=== PATIENT | male | born 1950 | race Caucasian/White ===

== ENCOUNTER 2025-04-05 08:35 | Outpatient (AMB) | payer BC, SELFPAY ==
--- OUTSIDE RECORDS SUMMARY | 2025-04-05 08:50 | XMS_ITS | Clinical Summary ---
Author Organization [facility] [place] Address [address] [facility] [place] [address] Phone Care Team Providers Care Engineering Equipment Operator Name Role Phone Ruslan Tarango MD Primary Care Provider [phone] Allergies Active Allergy Reactions Criticality Noted Date Comments Atorvastatin Calcium 07/18/2021 Medications ubidecarenone (CO Q-10 ORAL) Take 100 mg by mouth 1 (one) time each day. Active NETTLE LEAF, URTICA DIOICA, ORAL Take 1 Capsule by mouth daily. Active aspirin 81 mg EC tablet Take 1 tablet by mouth daily. Active esomeprazole (NexIUM) [address] capsule Take 1 Capsule by mouth every morning (before breakfast). Active famotidine (PEPCID) 20 mg tablet Take 1 Tablet by mouth 2 times daily. Active finasteride (PROSCAR) 5 mg tablet Take 5 mg by mouth daily. Active hydrALAZINE (APRESOLINE) 25 mg tablet Take 1 tablet by mouth 2 Times Daily. Active rosuvastatin (CRESTOR) 10 mg tablet Take 1 tablet by mouth daily. Active triamterene-hyd roCHLOROthiazid e (MAXZIDE-25) 37.5-25 mg per tablet Take 1 tablet by mouth daily. Active irbesartan (AVAPRO) 300 mg tablet TAKE 1 TABLET DAILY 90 tablet 1 11/06/2024 Active amLODIPine (NORVASC) 5 mg tablet TAKE 1 TABLET DAILY 90 tablet 1 11/06/2024 Active metoprolol succinate (TOPROL-XL) 50 mg 24 hr tablet TAKE 1 TABLET DAILY 90 tablet 1 11/06/2024 Active fenofibrate (LOFIBRA) 54 mg tablet TAKE 1 TABLET DAILY 90 tablet 1 11/06/2024 Active omega-3 acid ethyl esters (LOVAZA) 1 gram capsule Take 1,200 mg by mouth 2 (two) times a day. Active tadalafiL (CIALIS) 5 mg tablet Take 1 tablet (5 mg total) by mouth every other day. Active Active Problems Problem Noted Date Diagnosed Date Aortic valve sclerosis 01/12/2023 Overview (11/03/2024): Last Assessment & Plan: Very mild thickening of the aortic valve using a very soft 1/6 left ventricular outflow tract murmur patient's been made aware Paroxysmal ventricular tachy cardia (CMS/HCC V24, CMS/HCC V28) 05/29/2022 Overview (11/03/2024): Intraventricular complexes and nonsustained ventricular tachycardia. Last Assessment & Plan: No further episodes of V. tach identified Chronic ischemic heart disease 02/25/2022 Overview (11/03/2024): Known coronary disease with EVANGELISTA to the LAD. Last Assessment & Plan: Patient presents today endorsing symptoms similar to those prior to his coronary intervention. 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 Most recent stress echocardiogram in January 2022 could not exclude hypokinesis of the apical septal wall. Patient also endorses chest tightness, as well as nausea and increased fatigue. In light of the symptoms, I have ordered a cardiac PET stress test to further evaluate for ischemia. Patient instructed to call 911 or go to the hospital should he begin to experience chest pain or pressure lasting greater than 10 minutes that is not resolved with rest. He will continue on guideline directed medical therapy of metoprolol, amlodipine, Crestor, and aspirin. Class 1 obesity 02/25/2022 Brain TIA 02/25/2022 Overview (11/03/2024): D/C'd from [facility] on 02/07/22 Last Assessment & Plan: Patient never had a TIA documented. He does have these vague symptoms that seem to be more hyperperfused of than due to embolic, or thromboembolic disease. Patient does have frequent triplets and nonsustained VT. He does have scar tissue on nuclear study EF is preserved on exam beta-chaim lasting to be seen by her EP service to see if any further intervention is needed other ventricular ectopy since the ectopy may be causing some of the lightheaded symptoms and is complaining about no direct correlation of that has not been documented Lightheadedness 02/25/2022 Overview (11/03/2024): D/C'd from [facility] on 02/07/22 Chest tightness 02/25/2022 Overview (11/03/2024): D/C'd from [facility] on 02/07/22 Acute renal failure (ARF) ([facility] V24) 02/26/20 Overview (11/03/2024): D/C'd from [facility] on 02/07/22 CAD in [place] artery 07/18/2021 Overview (11/03/2024): Last Assessment & Plan: No evidence of ischemic coronary artery disease. Hyperlipidemia 07/18/2021 Overview (11/03/2024): Last Assessment & Plan: Lipids under good medical management Hypertension 07/18/2021 Overview (11/03/2024): Last Assessment & Plan: Blood pressure much better controlled during today's off exam with a reading of 136/76 . I have made no changes to his antihypertensive medications. He will continue on his current doses. Patient will continue with diet and lifestyle modification to help further assist in lowering blood pressure. He was encouraged to follow a low-salt low-fat diet, make purposeful strides towards weight loss and engage in routine aerobic exercise 30 minutes a day 4-5 times a week as tolerated. TAI (obstructive sleep apnea) 07/18/2021 Overview (11/03/2024): Last Assessment & Plan: History of sleep apnea remains on CPAP Resolved Problems Problem Noted Date Diagnosed Date Resolved Date Benign hypertensive heart disease 07/16/2022 01/26/2025 Overview (11/03/2024): Essential hypertension Last Assessment & Plan: Elevated blood pressure reading in the office today likely software support representative of whitecoat effect to some degree. I reviewed his home logs which generally show reasonable control with some mildly elevated systolic readings noted. We talked about possibly having him come off the diuretic given he has some concern about the effect on the kidneys and increasing amlodipine and hydralazine. I would not increase the metoprolol given his resting pulses in a good range. We talked about a low- sodium diet. He will need to avoid excessive alcohol or NSAIDs. Near syncope 02/25/2022 01/26/2025 Overview (11/03/2024): D/C'd from [facility] on 02/07/22 Encounters Date Type Department Care Team Description 01/26/2025 2:40 PM EST Office Visit [facility] [address] [facility] [address] [place] [address] Valentina Brito NP CAD in [place] artery (Primary Dx); Primary hypertension; Chronic ischemic heart disease; Paroxysmal ventricular tachycardia (CMS/HCC V24, CMS/HCC V28); Mixed hyperlipidemia; Heart murmur from Last 3 Months Surgical History Surgery Date Site/Laterality Comments CORONARY ARTERY BYPASS GRAFT PROCEDURE: HISTORICAL CABG CARDIAC CATHETERIZATION PROCEDURE: HISTORICAL CARDIAC CATH KNEE ARTHROSCOPY W/ MENISCAL REPAIR PROCEDURE: HI ARTHROSCOPY KNEE W/MENISCUS RPR MEDIAL/LATERAL Medical History Medical History Date Comments Chronic ischemic heart disease D X:Chronic ischemic heart disease Hyperlipidemia DX:Hyperlipidemi a Essential hypertension DX:Essent ial hypertension Benign prostatic hyperplasia without lower urinary tract symptoms DX:Benign prostatic hyperpla cedric without lower urinary tract symptoms; COMMENT: w/o obstruction Chronic GERD DX:Chronic GERD IBS (irritable bowel syndrome) D X:IBS (irritable bowel syndrome) Class 1 obesity DX:Class 1 obesi ty TAI (obstructive sleep apnea) DX :TAI (obstructive sleep apnea) Brain TIA DX:Brain TIA; CO MMENT: D/C'd from [facility] on 02/07/22 Lightheadedness DX:Lightheadedne ss; COMMENT: D/C'd from [facility] on 02/07/22 Near syncope DX:Near syncope; COMMENT: D/C'd from [facility] on 02/07/22 Vertigo DX:Vertigo; COMM ENT: D/C'd from [facility] on 02/07/22 Acute renal failure (ARF) (CMS/HCC V24) DX:Acute renal failure (ARF) (HCC); COMMENT: D/C'd from [facility] on 02/07/22 Anxiety DX:Anxiety; COMM ENT: D/C'd from [facility] on 02/07/22 Chronic renal disease DX:Chronic renal disease Chronic fatigue syndrome DX:Job 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 fatigue syndrome Backache DX:Backache Idiopathic osteoporosis DX:Idiop athic osteoporosis Low back pain DX:Low back pain Anemia DX:Anemia Family History Medical History Relation Name Comments No Known Problems Brother CABG Father Colon cancer Mother Hypertension Mother Relation Name Status Comments Brother Alive Father Mother Alive Social History Tobacco Use Types Packs/Day Years Used Date Smoking Tobacco: Never Smokeless Tobacco: Never Alcohol Use Standard Drinks/Week Comments Yes 0 (1 standard drink = 0.6 oz pur e alcohol) occassionally Sex and Gender Information Value Date Recorded Sex Assigned at Not on file Legal Sex Male 10:04 AM EST Gender Identity Not on file Sexual Orientation Not on file Obstetrics History Last Filed Vital Signs Vital Sign Reading Time Taken Comments Blood Pressure 140/82 01/26/2025 2:33 PM EST Pulse 60 01/26/2025 2:33 PM EST Temperature - - Respiratory Rate - - Oxygen Saturation 100% 01/26/2025 2:33 PM EST Inhaled Oxygen Concentration - - Weight 104 kg (228 lb 3.2 oz) 01/26/2025 2:33 PM EST Height 172.7 cm (5' 8 ) 01/26/2025 2:33 PM EST Body Mass Index 34.7 01/26/2025 2:33 PM EST Plan of Treatment Upcoming Encounters Date Type Department Care Team (Late st Contact Info) Description 04/09/2025 11:30 AM EDT Ancillary Procedure [facility] - [address] [facility] [address] [place] [address] 08/10/2025 1:30 PM EDT Office Visit [facility] [address] [facility] [address] [place] [address] Jeffrey Carreno MD [address] [place] [address] [address]IVE [address] [place] [address] Health Maintenance Due Date Last Done Comments DTaP,Tdap,and Td Vaccines (1 - Tdap) 1969 COVID-19 Vaccine (3 - Pfizer risk series) 04/07/2021 03/10/2021, 02/17/2021 Colorectal Cancer Screening: Colonoscopy 11/07/2022 Depression Screening 11/07/2022 Falls Risk Assessment 11/07/2022 Hepatitis C Screening 11/07/2022 Social Influencers of Health Screening 11/07/2022 Hypertension/CHF/CAD Annual BMP Blood Test 12/03/2023 12/03/2022, 09/26/2020 Cholesterol Screening (Lipid Panel) 03/26/2030 03/26/2025, 04/03/2006 Pneumococcal Vaccine: 50+ Years Completed 09/04/2021, 11/09/2018 Zoster Vaccines Completed 11/12/2021, 09/12/2021 Influenza Vaccine Completed 09/20/2024, , 09/25/2022, Additional history exists RSV Immunization Adult Patients Completed 09/28/2024 HIB Vaccines Aged Out No longer eligi ble based on patient's age to complete this topic HPV Vaccines Aged Out No longer eligi ble based on patient's age to complete this topic Hepatitis A Vaccines Aged Out No long er eligible based on patient's age to complete this topic Hepatitis B Vaccines Aged Out No long er eligible based on patient's age to complete this topic IPV Vaccines Aged Out No longer eligi ble based on patient's age to complete this topic MMR Vaccines Aged Out No longer eligi ble based on patient's age to complete this topic Meningococcal ACWY Vaccine Aged Out N o longer eligible based on patient's age to complete this topic Meningococcal B Vaccine Aged Out No l onger eligible based on patient's age to complete this topic RSV Immunization Patients Under 20 months Aged Out No longer eligible based on patient's age to complete this topic Varicella Vaccines Aged Out No longer eligible based on patient's age to complete this topic Procedures Procedure Name Priority Date/Time Associated Diagnosis Comments LIPID PANEL Routine 03/26/2025 9:36 AM EDT CAD in [place] artery Mixed hyperlipidemia ECG 12-LEAD Routine 01/26/2025 4:20 PM EST CAD in [place] artery ANNUAL BMP BLOOD TEST Routine 12/03/2022 from Last 3 Months or Most Recently Relevant to Health Maintenance Results * Lipid panel (03/26/2025 9:36 AM EDT) Cholesterol Total 135 100 - 199 mg/dL [facility] 1 Triglycerides 125 0 - 149 mg/dL [facility] 1 HDL Cholesterol 45 >39 mg/dL [facility] 1 VLDL Cholesterol Calculated 22 5 - 40 mg/dL [facility] 1 LDL Chol Calc ([facility]) 68 0 - 99 mg/dL [facility] 1 Blood Venous blood specimen / Unknown 03/26/2025 9:36 AM EDT 03/26/2025 Narrative [facility] - 03/27/2025 2:06 AM EDT Performed at: ??01 - [facility] [address] ??[id number] Carton Marker Machine: Bernarda Salazar MD, Phone: ??[phone] us Valentina Brito PLANT CONTROLS SPECIALIST LAB BLOOD ORDERABLES Final R esult [facility] * ECG 12 lead (01/26/2025 4:20 PM EST) Ventricular Rate ECG 60 BPM GEMUSE Atrial Rate 60 BPM GEMUSE P-R Interval 152 ms GEMUSE QRS Duration 126 ms GEMUSE Q-T Interval 468 ms GEMUSE QTc 468 ms GEMUSE P Wave [place] 33 degrees GEMUSE R [place] 10 degrees GEMUSE T [place] 70 degrees GEMUSE ECG Interpretation Normal sinus rhythm Non-specific intra-ventricul ar conduction block Cannot rule out Septal infarct , age undetermined Abnormal ECG No previous ECGs available Confirmed by Antonina ADEN JOHN ([id number]) on 01/29/2025 7:41:37 PM GEMUSE 01/26/2025 2:47 PM EST 01/29/2025 7:41 PM EST Valentina Brito PLANT CONTROLS SPECIALIST ECG ORDERABLES Edited Resul t - Final GEMUSE * Annual BMP Blood Test (12/03/2022) Annual BMP Blood Test abstracted Historical Provider HEALTH MAINTENANCE Final Result from Last 3 Months or Most Recently Relevant to Health Maintenance Insurance MEDICARE [facility] Care Teams Engineering Equipment Operator Relationship Specialty Start Date End Date Ruslan Tarango MD [address] [place] [address] [address] [place], [place] PCP - General Internal Medicine 07/18/21
--- NOTE | 2025-04-05 08:59 | MHC.OFFVIS ---
Vital Signs 04/05/25 09:06 Height 5 ft 8 in Weight 227 lb 1.218 oz BMI 34.5 BP 140/73 H Blood Pressure Location Lt brachial Position Sitting Pulse 60 Intake Visit Reasons: colo screening Intake Note: Duc presents in the office as a new patient colonoscopy screening. CC: He is due for a colonoscopy - family hx of colon cancer. He states he has some minor concerns today. He states that he has lots of gas and sometimes he has a BM 4 times in a day but it is NOT diarrhea. Sometimes it is very dark stools and that is concerning him as well. He said 50% of the time it is the dark color. States he is a little anemic and not sure if there is something there. Filling And Packing Supervisor Required: No Allergies house dust mite Allergy (Mild, Verified 04/05/25 09:01) Unknown No Known Drug Allergies Allergy (Mild, Verified 04/05/25 17:11) Unknown cardiac lead adhesive Allergy (Mild, Uncoded 04/05/25 17:11) Rash hayfever Allergy (Mild, Uncoded 04/05/25 09:01) Unknown HPI HPI colo screening: Details: 74-year-old male here for preprocedural meeting to discuss a screening colonoscopy. [facility] [place]. PMX Morbid obesity-BMI 35 TAI Hypertension High cholesterol CAD Idiopathic osteoporosis GERD Anxiety Lumbar degenerative disc disease BPH Chronic kidney disease Anemia * SURGICAL HISTORY Colonoscopy, 5 years ago EGD Meniscus repair knee CABG Prostate ablation * ALLERGIES: NKDA cardiac adhesive * [email or web address] LABS: None in our system TODAY'S VISIT His last scope was at [facility], he thinks there were polyps . He has been having bowel irritability over the past year o r so that seemed to be r/t his 's illness (she had c-diff and e coli infections then aoritc valve replacement). He also notes some black stools and he some anemia. He had lost weight during the illness of his but has re gained it. He is currently on Celexa. He is experiencing insomnia. And RLS. We discuss iron therapy for the SPF. Cramping right foot and told I am full of OA. Discuss taking melatonin earlier. He has occasional dysphagia in the upper esophagus about 10% of the time with solid foods. He had a barium swallow at [facility] which he was told was normal. His cardiac condition is well controlled and he has TAI. There are no prior problems with anesthesia or sedation. NO ID problems. His mother had CRC and a partial colectomy and he had polyps 5 years ago. [facility] Surgical History (Updated 04/05/25 @ 17:08 by MELONY Jose) History of prostate surgery S/P CABG (coronary artery bypass graft) Status post medial meniscus repair Hx of colonoscopy History of esophagogastroduodenoscopy (EGD) Family History (Updated 04/05/25 @ 09:02 by WOOD Lynch) Mother Colon cancer Physical Exam Vital Signs: Last Vital Signs Pulse 60 04/05/25 09:06 BP 140/73 H 04/05/25 09:06 BMI result Body Mass Index 34.5 Assessment & Plan Assessment & Plan (1) Pre-op examination: Code(s): Z01.818 - Encounter for other preprocedural examination Category: Medical (2) Anemia: Code(s): D64.9 - Anemia, unspecified Category: Medical (3) Diarrhea: Code(s): R19.7 - Diarrhea, unspecified Category: Medical (4) TAI (obstructive sleep apnea): Code(s): G47.33 - Obstructive sleep apnea (adult) (pediatric) Category: Medical (5) RLS (restless legs syndrome): Code(s): G25.81 - Restless legs syndrome Category: Medical (6) Tubular adenoma of colon: Code(s): D12.6 - Benign neoplasm of colon, unspecified Category: Medical (7) Family history of colon cancer in mother: Code(s): Z80.0 - Family history of malignant neoplasm of digestive organs Category: Medical Plan His last scope was at [facility], he thinks there were polyps . He has been having bowel irritability over the past year o r so that seemed to be r/t his 's illness (she had c-diff and e coli infections then aoritc valve replacement). He also notes some black stools and he some anemia. He had lost weight during the illness of his but has re gained it. He is currently on Celexa. He is experiencing insomnia. And RLS. We discuss iron therapy for the SPF. Cramping right foot and told I am full of OA. Discuss taking melatonin earlier. He has occasional dysphagia in the upper esophagus about 10% of the time with solid foods. He had a barium swallow at [facility] which he was told was normal. His cardiac condition is well controlled and he has TAI. There are no prior problems with anesthesia or sedation. NO ID problems. His mother had CRC and a partial colectomy and he had polyps 5 years ago. Orders: Orders Colonoscopy - GI Use Only Today Z01.818 - Encounter for other preprocedural examination Comprehensive Met. Panel Today Z.818 - Encounter for other preprocedural examination Complete Blood Count Auto Diff Today Z.81 - Encounter for other preprocedural examination Ferritin Today D64.9 - Anemia, unspecified, G47.33 - Obstructive sleep apnea (adult) (pediatric), R19.7 - Diarrhea, unspecified, Z.81 - Encounter for other preprocedural examination Medications: New peg 3350-electrolytes 236-22.74-6.74 -5.86 gram (Golytely) until fecal effluent is clear; do not exceed a total volume of 2,000 mL 240 mL PO Q10M 4,000 mL 0RF 1 day Z12.11 - Encounter for screening for malignant neoplasm of colon bisacodyl (Dulcolax (bisacodyl)) 10 mg (2 x 5 mg) PO BEDTIME 4 tabs 0RF 2 days dicyclomine 20 mg PO QID 120 tabs 6RF 30 days Coding Level of Care Code New Pt Level 3 (60833) Diagnoses Pre-op examination Z01.818 Anemia D64.9 Diarrhea R19.7 TAI (obstructive sleep apnea) G47.33 RLS (restless legs syndrome) G25.81 Tubular adenoma of colon D12.6 Family history of colon cancer in mother Z80.0
[2025-04-05 09:06] VITALS: BP 140/73; PULSE 60; BMI 34.5
== END 2025-04-05 10:01 | disposition home or self-care (01) ==
PROVIDERS: Visit Provider Nurse Practitioner
DX: Z01.818 Encounter for other preprocedural examination (principal); Z12.11 Encounter for screening for malignant neoplasm of colon; Z80.0 Family history of malignant neoplasm of digestive organs; Z86.0100 Personal history of colon polyps, unspecified; R19.7 Diarrhea, unspecified
CPT/HCPCS: S0285

== ENCOUNTER 2025-04-05 08:35 | Outpatient (REF) | payer BC, SELFPAY ==
[2025-04-05 10:42] LABS: MANUAL DIFF FLAG NO
[2025-04-05 10:57] LABS: Basophils Absolute Auto 0.1 X10*3/uL (0.0-0.2); Eosinophils Absolute Auto 0.4 X10*3/uL (0.0-0.4); Eosinophils Percent Auto 7.2 % (0-4); Hemoglobin 9.9 g/dl (14.0-18.0); Imm Gran Abs Auto 0.01 X10*3/uL (0.00-0.03); Imm Gran Pct Auto 0.2 % (0.0-0.4); Lymphocytes Absolute Auto 1.1 X10*3/uL (1.2-4.9); Lymphocytes Percent Auto 18.6 % (20-40); Mean Corpuscular HGB Conc 31.9 g/dl (31.0-36.0); Mean Corpuscular Hemoglobin 24.4 pg (27.0-33.0); Mean Corpuscular Volume 76.5 fL (80.0-98.0); Mean Platelet Volume 10.2 fL (9.4-12.4); Monocytes Absolute Auto 0.7 X10*3/uL (0.1-1.2); Monocytes Percent Auto 11.7 % (2-11); Neutrophils Absolute Auto 3.6 x10*3/uL (2.0-8.3); Neutrophils Percent Auto 61.3 % (45-73); Platelet Count 344 X10*3/uL (160-400); Red Blood Count 4.05 X10*6/uL (4.60-5.80); Red Cell Distribution Width 16.9 % (11.0-16.0); White Blood Count 5.8 X10*3/uL (4.8-10.8)
[2025-04-05 11:35] LABS: Alanine Aminotransferase 16 U/L (0-40); Albumin Level 4.2 g/dL (3.5-5.0); Alkaline Phosphatase 46 U/L (39-117); Anion Gap 12 (12-20); Aspartate Amino Transferase 24 U/L (5-37); Bilirubin Total 0.4 mg/dL (0.0-1.0); Blood Urea Nitrogen 19 mg/dL (9-16); Calcium 9.5 mg/dL (8.4-10.2); Carbon Dioxide 25 mmol/L (22-29); Chloride 108 mmol/L (96-108); Estimated Glomerular Filt Rate > 60; Glucose Random 99 mg/dL (60-115); Potassium 3.9 mmol/L (3.3-5.1); Sodium 141 mmol/L (135-145); Total Protein 7.1 g/dL (6.5-8.0)
--- OUTSIDE RECORDS SUMMARY | 2025-04-05 11:35 | XMS_ITS | Clinical Summary ---
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 Most recent [...] Brain TIA 02/25/2022 Overview (11/03/2024): D/C'd from [facility] on 02/07/22 Last Assessment & Plan: Patient [...] documented Lightheadedness 02/25/2022 Overview (11/03/2024): D/C'd from [facility] on 02/07/22 Chest tightness 02/25/2022 Overview (11/03/2024): D/C'd from [facility] on 02/07/22 Acute renal failure (ARF) ([facility] V24) 02/26/20 Overview (11/03/2024): D/C'd from [facility] on 02/07/22 CAD in [place] artery 07/18/2021 Overview (11/03/2024): Last Assessment & [...] pressure reading in the office today likely medical service representative of whitecoat effect to some degree. [...] syncope 02/25/2022 01/26/2025 Overview (11/03/2024): D/C'd from [facility] on 02/07/22 Encounters Date Type Department Care Team Description 01/26/2025 2:40 PM EST Office Visit [facility] [address] [facility] [address] [place] [address] Valentina Brito NP CAD in [place] artery (Primary Dx); Primary hypertension; Chronic ischemic heart disease; Paroxysmal ventricular tachycardia (CMS/HCC V24, CMS/HCC V28); Mixed hyperlipidemia; Heart murmur from Last 3 Months Surgical History Surgery Date Site/Laterality Comments CORONARY ARTERY BYPASS GRAFT PROCEDURE: HISTORICAL CABG CARDIAC CATHETERIZATION PROCEDURE: HISTORICAL CARDIAC CATH KNEE ARTHROSCOPY W/ MENISCAL REPAIR PROCEDURE: [place] ARTHROSCOPY KNEE W/MENISCUS RPR MEDIAL/LATERAL Medical History [...] TIA DX:Brain TIA; CO MMENT: D/C'd from [facility] on 02/07/22 Lightheadedness DX:Lightheadedne ss; COMMENT: D/C'd [...] disease DX:Chronic renal disease 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 Backache DX:Backache Idiopathic osteoporosis [...] Description 04/09/2025 11:30 AM EDT Ancillary Procedure [facility] - [address] [facility] [address] [place] [address] 08/10/2025 1:30 PM EDT Office Visit [facility] [address] [facility] [address] [place] [address] Jeffrey Carreno MD [address] [place] [address] [address] [place] [address] Health Maintenance Due Date Last Done Comments [...] Routine 03/26/2025 9:36 AM EDT CAD in [place] artery Mixed hyperlipidemia ECG 12-LEAD Routine 01/26/2025 4:20 PM EST CAD in [place] artery ANNUAL BMP BLOOD TEST Routine 12/03/2022 from Last 3 Months or Most Recently Relevant to Health Maintenance Results * Lipid panel (03/26/2025 9:36 AM EDT) Cholesterol Total 135 100 - 199 mg/dL [facility] 1 Triglycerides 125 0 - 149 mg/dL [facility] 1 HDL Cholesterol 45 >39 mg/dL [facility] 1 VLDL Cholesterol Calculated 22 5 - 40 mg/dL [facility] 1 LDL Chol Calc ([facility]) 68 0 - 99 mg/dL [facility] 1 Blood Venous blood specimen / Unknown 03/26/2025 9:36 AM EDT 03/26/2025 Narrative [facility] 1 - 03/27/2025 2:06 AM EDT Performed at: ??01 - [facility] [address] ??[id number] Supervisor [employer]: Bernarda Salazar MD, Phone: ??[phone] us Valentina Brito BALLPOINT PENS ASSEMBLER LAB BLOOD ORDERABLES Final R esult [facility] * ECG 12 lead (01/26/2025 4:20 PM EST) Ventricular Rate ECG 60 BPM GEMUSE Atrial Rate 60 BPM GEMUSE P-R Interval 152 ms GEMUSE QRS Duration 126 ms GEMUSE Q-T Interval 468 ms GEMUSE QTc 468 ms GEMUSE P Wave [place] 33 degrees GEMUSE R [place] 10 degrees GEMUSE T [place] 70 degrees GEMUSE ECG Interpretation Normal sinus rhythm Non-specific intra-ventricul ar conduction block Cannot rule out Septal infarct , age undetermined Abnormal ECG No previous ECGs available Confirmed by Antonina ADEN JOHN ([id number]) on 01/29/2025 7:41:37 PM GEMUSE 01/26/2025 2:47 PM EST 01/29/2025 7:41 PM EST Valentina Brito BALLPOINT PENS ASSEMBLER ECG ORDERABLES Edited Resul t - Final GEMUSE * Annual BMP Blood Test (12/03/2022) Annual BMP Blood Test abstracted Historical Provider HEALTH MAINTENANCE Final Result from Last 3 Months or Most Recently Relevant to Health Maintenance Insurance MEDICARE [facility] Care Teams Plastic Roller Relationship Specialty Start Date End Date Ruslan Tarango MD [address] [place] [address] [address] [place], [place] PCP - General Internal Medicine 07/18/21
[2025-04-05 11:52] LABS: Ferritin 7 ng/mL (20-250)
[2025-04-06 15:38] LABS: Class Almond 0; Class Brazil Nut 0; Class Cashew 0; Class Codfish 0; Class Cow's Milk 0/1; Class Egg white 0/1; Class Hazelnut 0; Class Macadamia Nut 0; Class Peanut 0/1; Class Salmon 0; Class Scallop 0; Class Sesame Seed 0; Class Shrimp 0; Class Soybean 0; Class Tuna 0; Class Walnut 0; Class Wheat 0/1; F001-IgE Egg White 0.13 kU/L; F002-IgE Milk 0.11 kU/L; F003-IgE Codfish <0.10 kU/L; F004-IgE Wheat 0.12 kU/L; F010-IgE Sesame Seed <0.10 kU/L; F013-IgE Peanut 0.16 kU/L; F014-IgE Soybean <0.10 kU/L; F017-IgE Hazelnut (Filbert) <0.10 kU/L; F018-IgE Brazil Nut <0.10 kU/L; F020-IgE Almond <0.10 kU/L; F024-IgE Shrimp <0.10 kU/L; F040-IgE Tuna <0.10 kU/L; F041 IgE Salmon <0.10 kU/L; F202-IgE Cashew Nut <0.10 kU/L; F256-IgE Walnut <0.10 kU/L; F338-IgE Scallop <0.10 kU/L; F345-IgE Macadmia Nut <0.10 kU/L
[2025-04-13 08:46] LABS: Rast Allergen SEE COMMENTS
== END 2025-04-05 08:36 | disposition home or self-care (01) ==
LOC: HO.LAB 08:35
PROVIDERS: PCP Internal Medicine; Visit Provider Nurse Practitioner
DX: Z01.818 Encounter for other preprocedural examination (principal); D64.9 Anemia, unspecified; R19.7 Diarrhea, unspecified; G47.33 Obstructive sleep apnea (adult) (pediatric); Z91.09 Other allergy status, other than to drugs and biological substances
CPT/HCPCS: 36415; 80053; 82728; 85025; 86003

== ENCOUNTER 2025-06-27 13:42 | Outpatient (AMB) | payer BC, SELFPAY ==
--- NOTE | 2025-06-27 13:47 | MHC.OFFVIS ---
Vital Signs 06/27/25 13:48 Height 5 ft 8 in Weight 226 lb 3.108 oz BMI 34.4 BP 129/74 Blood Pressure Location Lt brachial Position Sitting Pulse 63 Intake Visit Reasons: Follow up IBS, RAST Intake Note: Duc returns in follow up of IBS, and lab results. CC: Per patient he had a heart Echo done shortly after his last OV and it came back fine, but he still feeling exhausted . Per patient he also had some labs done and was found to be anemic. He was started on iron for 2 months which he already finished. Pt advised to continue taking OTC iron three times per week. 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 Allergies house dust mite Allergy (Mild, Verified 06/27/25 13:56) Unknown No Known Drug Allergies Allergy (Mild, Verified 06/27/25 13:56) Unknown cardiac lead adhesive Allergy (Mild, Uncoded 04/05/25 17:11) Rash hayfever Allergy (Mild, Uncoded 04/05/25 09:01) Unknown Medication List - Last Reconciled 06/27/25 by MELONY Jose amlodipine 5 mg PO DAILY ascorbic acid (vitamin C) mg PO aspirin 81 mg PO DAILY bisacodyl (Dulcolax (bisacodyl)) 10 mg (2 x 5 mg) PO BEDTIME 2 days citalopram 10 mg PO DAILY coenzyme Q10 (H2Q CoQ10) mg PO dicyclomine 20 mg PO QID 30 days esomeprazole magnesium (Nexium) 20 mg PO DAILY famotidine 20 mg PO BID fenofibrate 54 mg PO DAILY ferrous fumarate 325 mg PO DAILY finasteride 5 mg PO DAILY hydralazine 25 mg PO BID irbesartan 300 mg PO DAILY metoprolol succinate ER 50 mg PO DAILY nettle leaf (bulk) 2% ea miscellaneous omega-3 fatty acids 1,000 mg PO DAILY peg 3350-electrolytes 236-22.74-6.74 -5.86 gram (Golytely) 240 mL PO Q10M 1 day polyethylene glycol 3350 (Miralax) 17 grams PO DAILY rosuvastatin 10 mg PO DAILY triamterene-hydrochlorothiazid 37.5-25 mg 1 tab PO DAILY HPI HPI Follow up IBS, RAST: Details: Assessment & Plan (1) Pre-op examination: Code(s): Z01.818 - Encounter for other preprocedural examination Category: Medical (2) Anemia: Code(s): D64.9 - Anemia, unspecified Category: Medical (3) Diarrhea: Code(s): R19.7 - Diarrhea, unspecified Category: Medical (4) TAI (obstructive sleep apnea): Code(s): G47.33 - Obstructive sleep apnea (adult) (pediatric) Category: Medical (5) RLS (restless legs syndrome): Code(s): G25.81 - Restless legs syndrome Category: Medical (6) Tubular adenoma of colon: Code(s): D12.6 - Benign neoplasm of colon, unspecified Category: Medical (7) Family history of colon cancer in mother: Code(s): Z80.0 - Family history of malignant neoplasm of digestive organs Category: Medical Plan His last scope was at [facility], he thinks there were polyps . He has been having bowel irritability over the past year o r so that seemed to be r/t his 's illness (she had c-diff and e coli infections then aortic valve replacement). He also notes some black stools and he some anemia. He had lost weight during the illness of his but has re gained it. He is currently on Celexa. He is experiencing insomnia. And RLS. We discuss iron therapy for the SPF. Cramping right foot and told I am full of OA. Discuss taking melatonin earlier. He has occasional dysphagia in the upper esophagus about 10% of the time with solid foods. He had a barium swallow at [facility] which he was told was normal. His cardiac condition is well controlled and he has TAI. There are no prior problems with anesthesia or sedation. NO ID problems. His mother had CRC and a partial colectomy and he had polyps 5 years ago. Orders: Orders Colonoscopy - GI Use Only Today Z01.818 - Encounter for other preprocedural examination Comprehensive Met. Panel Today Z01.818 - Encounter for other preprocedural examination Complete Blood Count Auto Diff Today Z01.818 - Encounter for other preprocedural examination Ferritin Today D64.9 - Anemia, unspecified, G47.33 - Obstructive sleep apnea (adult) (pediatric), R19.7 - Diarrhea, unspecified, Z01.818 - Encounter for other preprocedural examination Medications: New peg 3350-electrolytes 236-22.74-6.74 -5.86 gram (Golytely) until fecal effluent is clear; do not exceed a total volume of 2,000 mL 240 mL PO Q10M 4,000 mL 0RF 1 day Z12.11 - Encounter for screening for malignant neoplasm of colon bisacodyl (Dulcolax (bisacodyl)) 10 mg (2 x 5 mg) PO BEDTIME 4 tabs 0RF 2 days dicyclomine 20 mg PO QID 120 tabs 6RF 30 days LABS: Laboratory Tests 04/05/25 10:40 WBC 5.8 Hgb 9.9 L Hct 31.0 L MCV 76.5 L MCH 24.4 L Plt Count 344 Estimated GFR > 60 Total Bilirubin 0.4 AST 24 ALT 16 Alkaline Phosphatase 46 Cow's Milk IgE Ab 0.11 H Egg White IgE Ab 0.13 H Peanut Allergen IgE Ab 0.16 H Wheat Allergen IgE Ab 0.12 H Laboratory Tests 04/05/25 10:40 Ferritin 7 L COLONOSCOPY BIOPSY TODAY'S VISIT He is on esomeprazole 20 mg once a day, famotidine 20 mg twice a day, and dicyclomine 20 mg up to 4 times a day. He brought labs from [facility] showing slight improvement in his hg/hct. He still is quite fatigued and still can't mow the lawn r/t weakness and fatigue. His SOB has improved. However, he was told by his primary to only take his iron 3 times a week because the serum iron levels and the saturation was high. I explained that this is an under informed instruction, as this is a normal physiologic response to taking iron and you can not diagnose overload utilizing these parameters, you need to look at the transferrin and the ferritin levels. His ferritin was extremely low when I did it in March so I expect that he is not yet completely repleted. I advise him to continue taking iron daily. He is taking this along with a vitamin-C supplement and a little bit of MiraLax to prevent constipation. Has not yet tried the dicyclomine as his bowels have not been too bad recently. He can keep that in his tool kit in case she develops more cramping and diarrhea. I am going to try to move up his EGD and colonoscopy to explore why this gentleman is not able to maintain his iron. Hopefully he is not losing it through the GI system but that is what we need to rule out. He also be seeing Hematology at [facility] soon to get their view on what might be the problem. The patient would prefer not to do the procedures in June because he had a lot of appointments that month but July would be better. He says that my tip of taking his melatonin earlier in the day has helped him to become sleepy at the correct time of day and his sleep initiation is improved. ROV 3 mos. [facility] Surgical History (Updated 04/05/25 @ 17:08 by MELONY Jose) History of prostate surgery S/P CABG (coronary artery bypass graft) Status post medial meniscus repair Hx of colonoscopy History of esophagogastroduodenoscopy (EGD) Family History (Updated 04/05/25 @ 09:02 by WOOD Lynch) Mother Colon cancer Social History Alcohol intake: current Alcohol intake frequency: holidays/special occasions only Patient Tobacco Use Status: Never used Tobacco Review of Systems Const Reports fatigue, Denies fever(s), Denies night sweats, Denies poor appetite and Denies weight loss Eyes Details: Glasses Reports requires corrective lenses ENT Reports Normal hearing present, Denies dental pain, Denies dysphagia, Denies hearing loss, Denies mouth pain, Denies odynophagia, Denies throat swelling, Denies tongue swelling and Reports other (Dentition adequate) Card Reports no additional complaints Resp Reports no additional complaints GI Details: Denies abdominal pain, Denies melena, Denies bloating, Denies hematochezia, Denies constipation, Reports GI cramping, Denies dysphagia, Denies excessive flatus, Denies early satiety, Reports heartburn, Denies diarrhea, Denies nausea, Denies odynophagia, Denies vomiting and Denies hematemesis Skin/Breast Denies pruritus, Denies lesions, Denies rash and Denies jaundice Neuro Reports Normal hearing present and Denies Abnormal speech present Endo Reports fatigue Jared/Lymph Reports as per HPI Aller/Immun Denies throat swelling and Denies tongue swelling Physical Exam Vital Signs: BMI result Body Mass Index 34.4 Const General: cooperative, no acute distress, well developed and well groomed Nutritional Appearance: well nourished and obese Orientation/consciousness: oriented to person, oriented to place and oriented to time Limitations: No language barrier HEENT Head: Yes normocephalic and Yes atraumatic Eyes General: appearance normal, both eyes and all related structures Pupils: Equal, round and reactive pupils present Neck Neck: Yes normal visual inspection and Yes no lymphadenopathy Thyroid: Thyroid normal Resp Effort & Inspection: normal respiratory effort and able to speak in complete sentences Auscultation: clear to auscultation bilaterally Cardio Rate: regular rate Rhythm: regular rhythm Heart sounds: Normal, physiologic split S2 sound present Peripheral pulses: radial pulses present and posterior tibial pulses present GI Inspection: No distended, No Abdominal panniculus present and Yes obesity Palpation (GI): Soft to palpation, nontender, no guarding, not rigid and No hepatosplenomegaly present Percussion: Yes normal to percussion Auscultation: normal bowel sounds Rectal Exam - Male: Yes deferred Skin General skin exam: no rashes or lesions noted, turgor normal, skin not dry, no jaundice, No spider nevi and no striae Rashes: no rashes Nails: normal Neuro General: oriented to person, oriented to place and oriented to time Cranial nerves: Yes Equal, round and reactive pupils present and Yes Normal hearing present Speech: No Abnormal speech present Extrem General: Yes normal to inspection, No clubbing, No cyanosis and No edema Psych Appearance: grossly normal and well kempt Mental Status: mental status grossly normal Speech and movement: Normal speech and movement present Affect: normal affect Attitude: cooperative Thought process: Normal thought process present and not confabulating Thought content: Normal thought content present Insight: Good insight present (Psych) Judgement: Good judgement present (Psych) Assessment & Plan Assessment & Plan (1) Anemia: Code(s): D64.9 - Anemia, unspecified Category: Medical (2) Tubular adenoma of colon: Code(s): D12.6 - Benign neoplasm of colon, unspecified Category: Medical Plan He is on esomeprazole 20 mg once a day, famotidine 20 mg twice a day, and dicyclomine 20 mg up to 4 times a day. He brought labs from [facility] showing slight improvement in his hg/hct. He still is quite fatigued and still can't mow the lawn r/t weakness and fatigue. His SOB has improved. However, he was told by his primary to only take his iron 3 times a week because the serum iron levels and the saturation was high. I explained that this is an under informed instruction, as this is a normal physiologic response to taking iron and you can not diagnose overload utilizing these parameters, you need to look at the transferrin and the ferritin levels. His ferritin was extremely low when I did it in March so I expect that he is not yet completely repleted. I advise him to continue taking iron daily. He is taking this along with a vitamin-C supplement and a little bit of MiraLax to prevent constipation. Has not yet tried the dicyclomine as his bowels have not been too bad recently. He can keep that in his tool kit in case she develops more cramping and diarrhea. I am going to try to move up his EGD and colonoscopy to explore why this gentleman is not able to maintain his iron. Hopefully he is not losing it through the GI system but that is what we need to rule out. He also be seeing Hematology at [facility] soon to get their view on what might be the problem. The patient would prefer not to do the procedures in June because he had a lot of appointments that month but July would be better. He says that my tip of taking his melatonin earlier in the day has helped him to become sleepy at the correct time of day and his sleep initiation is improved. ROV 3 mos. Orders: Orders EGD/[place] Combo - GI Use Only Today D12.6 - Benign neoplasm of colon, unspecified, D64.9 - Anemia, unspecified Ferritin Today D64.9 - Anemia, unspecified Coding Level of Care Code Est Pt Level 3 (78113) Diagnoses Anemia D64.9 Tubular adenoma of colon D12.6
[2025-06-27 13:48] VITALS: BP 129/74; PULSE 63; BMI 34.4
--- OUTSIDE RECORDS SUMMARY | 2025-06-27 14:21 | XMS_ITS | Clinical Summary ---
Author Organization [facility] Address [address] [facility] [place] [address] Phone Care Team Providers Care Recordist Name Role Phone Ruslan Tarango MD Primary Care Provider [phone] Allergies Active Allergy Reactions Criticality Noted Date Comments Atorvastatin Calcium 07/18/2021 Medications ubidecarenone (CO Q-10 ORAL) Take 250 mg by mouth 1 (one) time each [...] Take 1 tablet by mouth daily. Active triamterene-hydr oCHLOROthiazide (MAXZIDE-25) 37.5-25 mg per tablet Take 1 tablet by mouth daily. Active omega-3 acid ethyl esters (LOVAZA) 1 gram capsule Take 1,200 mg by mouth 2 (two) times a day. Active tadalafiL (CIALIS) 5 mg tablet Take 1 tablet (5 mg total) by mouth every other day. Active citalopram (CeleXA) 10 mg tablet Take 1 tablet (10 mg total) by mouth 1 (one) time each day. Active ascorbic acid (Vitamin C) 1,000 mg tabletIndication s:Anemia, unspecified type Take 1 tablet (1,000 mg total) by mouth 1 (one) time each day. 30 tablet 2 5 04/20/20 26 Active amLODIPine (NORVASC) 5 mg tablet TAKE 1 TABLET DAILY 90 tablet 3 5 Active metoprolol succinate (TOPROL-XL) 50 mg 24 hr tablet TAKE 1 TABLET DAILY 90 tablet 3 5 Active irbesartan (AVAPRO) 300 mg tablet TAKE 1 TABLET DAILY 90 tablet 3 5 Active fenofibrate (LOFIBRA) 54 mg tablet TAKE 1 TABLET DAILY 90 tablet 3 5 Active ferrous sulfate 325 mg (65 mg iron) EC tablet Take 1 tablet (325 mg total) by mouth 1 (one) time each day with breakfast. Do not crush, chew, or split. 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 Most recent [...] Brain TIA 02/25/2022 Overview (11/03/2024): D/C'd from [facility] on 02/07/22 Last Assessment & Plan: Patient [...] documented Lightheadedness 02/25/2022 Overview (11/03/2024): D/C'd from [facility] on 02/07/22 Chest tightness 02/25/2022 Overview (11/03/2024): D/C'd from [facility] on 02/07/22 Acute renal failure (ARF) ([facility] V24) 02/26/20 Overview (11/03/2024): D/C'd from [facility] on 02/07/22 CAD in [place] artery 07/18/2021 Overview (11/03/2024): Last Assessment & Plan: No evidence of ischemic coronary artery disease. Assessment & Plan (04/20/2025 6:38 PM EDT): Patient's symptoms do not seem to be consistent with progressive ischemic coronary disease or cardiomyopathy. Orders: ECG 12 lead Hyperlipidemia 07/18/2021 Overview (11/03/2024): Last Assessment & [...] pressure reading in the office today likely vendor representatives of whitecoat effect to some degree. I [...] syncope 02/25/2022 01/26/2025 Overview (11/03/2024): D/C'd from [facility] on 02/07/22 Encounters Date Type Department Care Team Description 04/20/2025 3:00 PM EDT Office Visit [facility] [address] [place] [id number] Rosalia Carreno MD CAD in [place] artery (Primary Dx); Anemia, unspecified type 04/16/2025 Telephone [facility] [address] [place] [address] Rosalia Carreno MD Results 04/09/2025 11:30 AM EDT Ancillary Procedure [facility] [address] [place] [address] Heart murmur from Last 3 Months Surgical History Surgery Date Site/Laterality Comments CORONARY ARTERY BYPASS GRAFT PROCEDURE: HISTORICAL CABG CARDIAC CATHETERIZATION PROCEDURE: HISTORICAL CARDIAC CATH KNEE ARTHROSCOPY W/ MENISCAL REPAIR PROCEDURE: [place] ARTHROSCOPY KNEE W/MENISCUS RPR MEDIAL/LATERAL Medical History [...] TIA DX:Brain TIA; CO MMENT: D/C'd from [facility] on 02/07/22 Lightheadedness DX:Lightheadedne ss; COMMENT: D/C'd from [facility] on 02/07/22 Near syncope DX:Near syncope; COMMENT: D/C'd from [facility] on 02/07/22 Vertigo DX:Vertigo; COMM ENT: D/C'd from [facility] on 02/07/22 Acute renal failure (ARF) ([facility] V24) DX:Acute renal failure (ARF) ([facility]); COMMENT: D/C'd from [facility] on 02/07/22 Anxiety DX:Anxiety; COMM ENT: D/C'd from [facility] on 02/07/22 Chronic renal disease DX:Chronic renal disease 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 Backache DX:Backache Idiopathic osteoporosis [...] drink = 0.6 oz pur e alcohol) occasional Sex and Gender Information Value Date Recorded Sex Assigned at Not on file Legal Sex Male 10:04 AM EST Gender Identity Not on file Sexual Orientation Not on file Obstetrics History Last Filed Vital Signs Vital Sign Reading Time Taken Comments Blood Pressure 140/80 04/20/2025 3:05 PM EDT Pulse 66 04/20/2025 3:05 PM EDT Temperature - - Respiratory Rate - - Oxygen Saturation 95% 04/20/2025 3:05 PM EDT Inhaled Oxygen Concentration - - Weight 103 kg (228 lb) 04/20/2025 3:05 PM EDT Height 172.7 cm (5' 8 ) 04/20/2025 3:05 PM EDT Body Mass Index 34.67 04/20/2025 3:05 PM EDT Plan of Treatment Upcoming Encounters Date Type Department Care Team (Late st Contact Info) Description 08/10/2025 1:30 PM EDT Office Visit [facility] [address] [place] [address] [address] [place] [address] Rosalia Carreno MD [address] [place] [address] [address] [place] [address] Health Maintenance Due Date Last Done Comments DTaP,Tdap,and Td Vaccines (1 - Tdap) 1969 COVID-19 Vaccine (3 - Pfizer risk series) 04/07/2021 03/10/2021, 02/17/2021 Colorectal Cancer Screening: Colonoscopy 11/07/2022 Falls Risk Assessment 11/07/2022 Hepatitis C Screening 11/07/2022 Social Influencers of Health Screening 11/07/2022 Hypertension/CHF/CAD Annual BMP Blood Test 12/03/2023 12/03/2022, 09/26/2020 Depression Screening 11/29/2024 Influenza Vaccine (#1) 2025 , 09/24/2023, 09/25/2022, Additional history exists Cholesterol Screening (Lipid Panel) 03/26/2030 03/26/2025, 04/03/2006 Pneumococcal Vaccine: 50+ Years Completed 09/04/2021, 11/09/2018 Zoster Vaccines Completed 11/12/2021, 09/12/2021 RSV Immunization Adult Patients Completed 09/28/2024 HIB [...] Procedure Name Priority Date/Time Associated Diagnosis Comments ECG 12-LEAD Routine 04/20/2025 3:14 PM EDT CAD in [place] artery TRANSTHORACIC ECHOCARDIOGRAM (TTE) COMPLETE W/ CONTRAST Routine 04/09/2025 12:10 PM EDT Heart murmur LIPID PANEL Routine 03/26/2025 9:36 AM EDT CAD in [place] artery Mixed hyperlipidemia ANNUAL BMP BLOOD TEST Routine 12/03/2022 from Last 3 Months or Most Recently Relevant to Health Maintenance Results * ECG 12 lead (04/20/2025 3:14 PM EDT) [employer] Signature Ventricular Rate ECG 66 BPM GEMUSE Atrial Rate 66 BPM GEMUSE P-R Interval 168 ms GEMUSE QRS Duration 122 ms GEMUSE Q-T Interval 434 ms GEMUSE QTc 454 ms GEMUSE P Wave [place] 13 degrees GEMUSE R [place] 66 degrees GEMUSE T [place] 42 degrees GEMUSE ECG Interpretation Normal sinus rhythm Non-specific intra-ventric ular conduction delay Borderline ECG When compared with ECG of 26-JAN-2025 14:47, Minimal criteria for Septal infarct are no longer Present Confirmed by Antonina CARRENO, ROSALIA ([id number]) on 04/20/2025 5:21:19 PM GEMUSE 04/20/2025 3:14 PM EDT 04/20/2025 5:21 PM EDT us Rosalia Carreno MD ECG ORDERABLES Final Result GEMRAMONA * (ABNORMAL) TRANSTHORACIC ECHOCARDIOGRAM (TTE) COMPLETE W/ CONTRAST (04/09/2025 12:10 PM EDT) LV EDV (A2C) 133 mL CV PACS LV EDV (A4C) 126 mL CV PACS LV Diastolic Volume (BP) 132 62 - 150 mL CV PACS LV ESV (A2C) 45 mL CV PACS LV ESV (A4C) 55 mL CV PACS LV Systolic Volume (BP) 51 21 - 61 mL CV PACS IVSD 1.3(A) 0.6 - 1.0 cm CV PACS LVIDD 5.2 4.2 - 5.8 cm CV PACS LVIDS 3.6 2.5 - 4.0 cm CV PACS LVOT Diameter 2.2 cm CV PACS LVOT Mean John 0.7 m/s CV PACS LVOT Mean Grad 2 mmHg CV PACS LVOT Mean Grad 2 mmHg CV PACS LVOT Peak VTI 25.8 cm CV PACS LVOT Peak VTI 25.8 cm CV PACS LVOT Peak John 1.1 m/s CV PACS LVOT Peak Gradient 5 mmHg CV PACS LVPWD 1.3(A) 0.6 - 1.0 cm CV PACS MV E' Tissue Velocity Lateral 9 cm/s CV PACS MV E' Tissue Velocity Septal 6 cm/s CV PACS Ejection Fraction (A2C) 66 % CV PACS Ejection Fraction (A4C) 56 % CV PACS Ejection Fraction (BP) 61 % CV PACS LVOT Area 3.8 cm2 CV PACS LVOT Stroke Volume 98 mL CV PACS Left Atrium Minor [place] 6.5 cm CV PACS Left Atrium Major [place] 6.3 cm CV PACS LA Area Sys (A2C) 28 cm2 CV PACS LA Area Sys (A4C) 29 cm2 CV PACS LA Volume (BP) 102 mL CV PACS RA Area 20.7 cm2 CV PACS RA 2D Volume 58 mL CV PACS AV Mean Gradient 5 mmHg CV PACS AV Mean Gradient 5 mmHg CV PACS Ao VTI 37.5 cm CV PACS AV Peak John 1.6 m/s CV PACS AV Peak Gradient 11 mmHg CV PACS AV Area Peak Velocity 2.5 cm2 CV PACS Aortic Arch 2.8 cm CV PACS Ascending Aorta 3.8 cm CV PACS Aortic Sinus Valsalva 3.9 cm CV PACS IVC Proximal 1.8 cm CV PACS MV Deceleration Webb 5.6 m/s2 CV PACS E Wave Deceleration Time 176 119 - 242 ms CV PACS MV PHT 52 ms CV PACS MV Peak A John 0.84 m/s CV PACS MV Peak A John 0.84 m/s CV PACS MV Peak E John 1.01 m/s CV PACS MV Mean Gradient 1 mmHg CV PACS MV Mean Gradient 1 mmHg CV PACS MV Mean Gradient 1 mmHg CV PACS MV Mean Gradient 1 mmHg CV PACS MV VTI 39.3 cm CV PACS Mitral Valve Max Velocity 1.1 m/s CV PACS MV Peak Gradient 5 mmHg CV PACS MV Area PHT 4.2 cm2 CV PACS PV Acceleration Time 85 ms CV PACS PV Mean Gradient 2 mmHg CV PACS PV VTI 25.1 cm CV PACS PV Peak Velocity 1.1 m/s CV PACS PV Peak Gradient 5 mmHg CV PACS RV Diastolic Basal Dimension 4.7(A) 2.5 - 4.1 cm CV PACS RV S' 10 cm/s CV PACS TAPSE 27 mm CV PACS TR Peak Velocity 2.14 m/s CV PACS TR Peak Gradient 18 mmHg CV PACS E/E' Ratio Septal 17 CV PACS E/E' Ratio Averaged 14 CV PACS Relative Wall Thickness ratio 0.50 CV PACS FS 31 % CV PACS LV Mass 2D 278 g CV PACS LVOT flow 266 mL/s CV PACS AV Velocity Ratio 0.69 CV PACS E/E' Ratio Lateral 11 CV PACS BSA 2.24 m2 CV PACS LV Diastolic Volume Index (BP) 61 34 - 74 mL/m2 CV PACS LV Systolic Volume Index (BP) 24 11 - 31 mL/m2 CV PACS LV EDV Index (A4C) 58 mL/m2 CV PACS LV ESV Index (A4C) 25 mL/m2 CV PACS LV EDV Index (A2C) 61 mL/m2 CV PACS LV ESV Index (A2C) 21 mL/m2 CV PACS LA Volume Index (BP) 47 mL/m2 CV PACS LVIDD Index 2.40 cm/m2 CV PACS LVIDS Index 1.66 cm/m2 CV PACS LV Mass Index 2D 128(A) 50 - 102 g/m2 CV PACS LVOT Stroke Index 45 mL/m2 CV PACS RA 2D Volume Index 27 18 - 32 mL/m2 CV PACS COLBY Index (Pk John) 1.15 cm2/m2 CV PACS Ascending Aorta Index 1.75 cm/m2 CV PACS Right Ventricular Peak Systolic Pressure 21 mmHg CV PACS Est. RA Pressure 3 mmHg CV PACS Anatomical Region Laterality Modality Ultrasound Narrative 04/12/2025 1:13 PM EDT Left ventricle cavity size is normal. Left ventricular systolic function is in the normal range with an ejection fraction of 60-65%. 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 See wall scoring diagram. Left ventricle mild concentric hypertrophy. Right ventricle cavity is mildly enlarged. Aortic valve leaflets are mildly thickened. Left Ventricle Left ventricle cavity size is normal. There is mild concentric hypertrophy. Systolic function is normal with an ejection fraction of 60-65%. Right Ventricle Right ventricle cavity is mildly dilated. Left Atrium Left atrium cavity is moderately dilated. Right Atrium Right atrium cavity is normal. IVC/SVC Inferior vena cava structure is normal. RA pressures is estimated to be 3 mmHg (IVC diameter <21 mm and decreases >50% during inspiration). Mitral Valve The leaflets are mildly thickened. There is mild annular calcification. There is trace regurgitation. There is no evidence of mitral valve stenosis. Tricuspid Valve Tricuspid valve structure is normal. There is no significant regurgitation. The right ventricular systolic pressure is normal. Aortic Valve The aortic valve is trileaflet. The leaflets are mildly thickened. There is trace regurgitation with a centrally directed jet. There is no evidence of aortic valve stenosis. Pulmonic Valve There is trace pulmonic valve regurgitation. Ascending Aorta The aorta appears normal in size. Pericardium Pericardium appears normal. There is no pericardial effusion. Study Details Overall the study quality was adequate. Definity contrast was given to enhance imaging. Wall Scoring Baseline Score Index: 2.00 The following segments are hypokinetic: mid anteroseptal. Other segments could not be evaluated. Valentina Brito NP CV ECHO PROCEDURES Final Res ult * Lipid panel (03/26/2025 9:36 AM EDT) Pathologist [facility] Cholesterol Total 135 100 - 199 mg/dL [facility] Triglycerides 125 0 - 149 mg/dL [facility] 1 HDL Cholesterol 45 >39 mg/dL [facility] 1 VLDL Cholesterol Calculated 22 5 - 40 mg/dL [facility] 1 LDL Chol Calc (NIH) 68 0 - 99 mg/dL [facility] 1 Blood Venous blood specimen / Unknown 03/26/2025 9:36 AM EDT 03/26/2025 Narrative [facility] 1 - 03/27/2025 2:06 AM EDT Performed at: 01 - [facility] [address] [id number] Internet Developer: Bernarda Salazar MD, Phone: [phone] Result [facility] Valentina Brito NP LAB BLOOD ORDERABLES Final R esult [facility] 1 * Annual BMP Blood Test (12/03/2022) [facility] Annual BMP Blood Test abstracted Historical Provider HEALTH MAINTENANCE Final Result from Last 3 Months or Most Recently Relevant to Health Maintenance Insurance MEDICARE [facility] Care Teams Recordist Relationship Specialty Start Date End Date Ruslan Tarango MD [address] [place], [place] PCP - General Internal Medicine 07/18/21
--- OUTSIDE RECORDS SUMMARY | 2025-06-27 14:21 | XMS_ITS | Patient Health Record ---
Author Organization [facility] Address [address] [place] [address] Care Team Providers Care Mail Agent Name Role Phone Yg BARON, Vic Primary Care Provider Wen Filipe Lakhani [phone] Allergies Allergen (clinical drug ingredient) Drug/Non Drug Allergy documented on EMR Reaction Allergy Type Onset Date Status high doses of steroi ds (uncoded) Unknown Allergy Active Reason For Referral No Information Medications Medication SIG (Take, Route, Fr equency, Duration) Notes Start Date End Date Status Vitamin D 2000iu Act gabby Prevacid 30mg Active Fenofibrate 54mg Act gabby CeleXA 20mg Active Triamterene 37.5/25 Active Toprol XL 50mg Activ e Aspir-81 81mg Active Lansoprazole 30 MG 1 capsule Orally QD for 90 day(s) 01/03/2013 Active Fish Oil Active Folic Acid Active Casandra 5/40mg Active Problems Problem Type SNOMED Code ICD Code Onset Dates Problem Status W/U Status Risk Notes Problem Esophageal reflux (272811094) Esophageal reflux (530.81) Active confirmed Problem Irritable bowel syndrome (60634600) Irritable bowel syndrome (564.1) Active confirmed Plan Of Treatment No Information Insurance Providers Payer Name Payer Address Payer Phone Subscriber Number Group Number Insured Name Patient Relationship to Insured Coverage Start Date Coverage End Date [facility] [address] [place] [address] [phone] [id number] SUSHANT FARAH Self - patient is the insured Medical (General) History Medical History History ICD Code negative cardiac catheteriza tion per history of present illness. Otherwise per old record
--- OUTSIDE RECORDS SUMMARY | 2025-06-27 14:21 | XMS_ITS | Clinical Summary ---
Author Organization [facility] Address [address] [facility] [place] [address] Phone Care Team Providers Care Sports Physiologist Name Role Phone Ruslan Tarango MD Primary Care Provider + Allergies Active Allergy Reactions Criticality Noted Date Comments Atorvastatin 12/02/2022 Tolerating crestor Medications amLODIPine (NORVASC) 5 MG tablet Take 5 mg by mouth daily. Active triamterene-hyd roCHLOROthiazid e (DYAZIDE) 37.5-25 mg per capsule Take 1 capsule by mouth every morning. Active irbesartan (AVAPRO) 300 MG tablet Take 300 mg by mouth daily. Active rosuvastatin (CRESTOR) 10 MG tablet Take 10 mg by mouth nightly at bedtime. Active fenofibrate (LOFIBRA) 54 MG tablet Take 54 mg by mouth daily. Active finasteride (PROSCAR) 5 mg tablet Take 5 mg by mouth daily. Active metoprolol succinate (TOPROL-XL) 50 MG 24 hr tablet Take 50 mg by mouth nightly at bedtime. Active coenzyme Q10 100 mg capsule Take 100 mg by mouth daily. Active esomeprazole (NEXIUM) 20 MG capsule Take 40 mg by mouth daily before breakfast. Active fish,bora,flax oils-om3,6,9no1 1,200 mg Cap Take by mouth 2 (two) times a day. Active aspirin 81 MG EC tablet Take 81 mg by mouth daily. Active famotidine (PEPCID) 20 MG tablet Take 20 mg by mouth once. Active Medication-Free Text Stinging nettle Active citalopram (CELEXA) 20 MG tablet Take 20 mg by mouth. 3 Active omega-3 acid ethyl esters (LOVAZA) 1 gram capsule Take 1,200 mg by mouth 2 (two) times a day. Active tadalafiL (CIALIS) 5 MG tablet Take 5 mg by mouth every other day. Active hydrALAZINE (APRESOLINE) 25 MG tablet Take 25 mg by mouth 2 (two) times a day. 5 Active dicyclomine (BENTYL) 20 mg tablet Take 20 mg by mouth 4 (four) times a day. 5 Active LAXATIVE, BISACODYL, 5 mg Tab tablet TAKE 2 TABLETS BY MOUTH AT BEDTIME FOR 2 DAYS 5 Active ascorbic acid, vitamin C, (VITAMIN C) 1000 MG tablet Take 1,000 mg by mouth. 5 04/20/20 26 Active ferrous sulfate 325 mg (65 mg [place] iron) EC tablet Take 325 mg by mouth. 5 06/19/20 25 cyclobenzaprine (FLEXERIL) 10 MG tablet Take 1 tablet (10 mg total) by mouth 3 (three) times a day as needed (pain or spasm). 15 tablet 5 06/13/20 25 Active Problems Problem Noted Date Diagnosed Date BPH with obstruction/lower urinary tract symptom s 12/02/2022 Assessment & Plan (12/03/2022 7:40 AM EST): Surgical management as above Gross hematuria 12/02/2022 Assessment & Plan (12/03/2022 7:40 AM EST): Status post elective prostate surgery with Dr Morse. No procedural complications. Chavira catheter in place with outpatient voiding trial and follow-up in the urology office. -Aspirin was restarted by urology postprocedure Benign prostatic hyperplasia 10/05/2022 Class 1 obesity 10/05/2022 Hyperlipidemia 10/05/2022 Hypertensive disorder 10/05/2022 Assessment & Plan (12/03/2022 7:41 AM EST): Antihypertensives hydrochlorothiazide, irbesartan, hydralazine, amlodipine. TAI on CPAP 02/06/2022 Assessment & Plan (12/03/2022 7:41 AM EST): Home on usual CPAP Irritable bowel syndrome 02/06/2022 Gastroesophageal reflux disease 02/06/2022 Diverticulosis of colon 02/06/2022 Coronary artery disease 07/20/2011 Overview (12/02/2022): [facility] Assessment & Plan (12/03/2022 7:41 AM EST): Continue aspirin, statin, fenofibrate, co-Q10, metoprolol, omega-3. Encounters Date Type Department Care Team Description 06/15/2025 Transcribe Orders [facility] [address] [place] [address] María Lamas Encounter for rehabilitation (Primary Dx) 06/09/2025 10:15 AM EDT - 06/09/2025 3:13 PM EDT Emergency [facility] [address] [place] [address] Discharge Disposition: Home or Self Care 06/08/2025 1:40 PM EDT Office Visit [facility] at [address] [address] Latoya Ribera, DAWOOD Neck pain (Primary Dx) from Last 3 Months Immunizations Immunization Administration Dates Next Due Influenza High-Dose Quadriva lent Preservative Free IM 09/24/2023,09/25/2022,09/04/2021,09/04 Pneumococcal conjugate PCV13 11/09/2018 Pneumococcal polysaccharide PPSV23 09/04/2021 Zoster recombinant 11/12/2021,09/12/2021 Family History Medical History Relation Comments Heart disease Father No Known Problems Mother Relation Status Comments Father Mother Social History Tobacco Use Types Packs/Day Years Used Date Smoking Tobacco: Never Smokeless Tobacco: Never Tobacco Cessation:Counseling Given: Not Answered Alcohol Use Standard Drinks/Week Comments Not Currently 0 (1 standard drink = 0.6 oz pure alcohol) occasionally, 1 drink weekly or so Education Answer Date Recorded Are you interested in more education? Not on mel e 03/26/2023 Are you concerned about learning? Not on file 03/26/2023 No 03/26/2023 No 03/26/2023 Food Answer Date Recorded Within the past 6 months we worried whether our food would run out before we got money to buy more. Never True 06/09/2025 Within the past 6 months the food we bought just didn't last and we didn't have enough money to get more. Never True Residential Stability Answer Date Recor ded What is your housing situation today? I have seng sing 06/09/2025 How many times have you move d in the past 12 months? Zero (I did not move) 06/09/2025 Paying for Meds Answer Date Recorded Do you have trouble paying for medicines? No 06/09/2025 Paying Utility Bills Answer Date Record ed Do you have trouble paying your heating or elect ricity bill? No 06/09/2025 Transportation Answer Date Recorded Has the lack of transportati on kept you from medical appointments or from getting medications? No 06/09/2025 Digital Access Answer Date Recorded No 06/09/2025 Yes 06/09/2025 Do you have reliable internet access at home? Ye s 06/09/2025 Do you have a device (e.g., phone, tablet, computer) with a working camera? Yes 06/09/2025 Intimate Partner Violence Answer Date R ecorded Are you denied basic needs s uch as food, clothing, or medical care? No 06/09/2025 In the past 12 months have y ou been in a relationship with a person who hurts, threatens, or tries to control you? No 06/09/2025 Are you denied basic needs s uch as food, clothing, or medical care? No 06/09/2025 In the past 12 months have y ou been in a relationship with a person who hurts, threatens, or tries to control you? 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 Not on file Not on file Not on file Last Filed Vital Signs Vital Sign Reading Time Taken Comments Blood Pressure 166/101 06/09/2025 2:49 PM EDT Pulse 65 06/09/2025 2:49 PM EDT Temperature 37.2 C (98.9 F) 06/09/2025 2:49 PM EDT Respiratory Rate 16 06/09/2025 2:49 PM EDT Oxygen Saturation 100% 06/09/2025 2:49 PM EDT Inhaled Oxygen Concentration - - Weight 104.3 kg (230 lb) 06/09/2025 8:34 AM EDT Height 172.7 cm (5' 8 ) 06/09/2025 8:34 AM EDT Body Mass Index 34.97 06/09/2025 8:34 AM EDT Plan of Treatment Upcoming Encounters Date Type Department Care Team (Late st Contact Info) Description 07/31/2025 11:45 AM EDT Office Visit [address] [address] Perla Donovan PA [address] [facility] [address] [place] [phone] Hardik Montanez, PT [address] [place] [address] [email or web address] 08/07/2025 11:45 AM EDT Office Visit [address] [address] Perla Donovan PA [address] [place] [phone] Hardik Montanez, PT [address] [place] [address] [email or web address] 08/13/2025 12:00 PM EDT Office Visit [address] [address] Perla Donovan PA [address] [facility] [address] [place] [phone] Hardik Montanez, PT [address] [place] [address] [email or web address] 08/17/2025 11:45 AM EDT Office Visit [address] [address] Perla Donovan, PA [address] [place] [address] Cha Esquivel, SILK SCREEN PRINTER HELPER [address] [place] [phone] [email or web address] 08/21/2025 2:15 PM EDT Office Visit [address] [address] Perla Donovan, PA [address] [place] [phone] Cha Esquivel, SILK SCREEN PRINTER HELPER [address] [place] [phone] [email or web address] 08/23/2025 1:30 PM EDT Office Visit [address] [address] Perla Donovan, STEFAN [address] [place] [address] Hardik Montanez, PT [address] [place] [address] [email or web address] 08/27/2025 11:45 AM EDT Office Visit [address] [address] Perla Donovan, PA [address] [place] [address] Cha Esquivel, SILK SCREEN PRINTER HELPER [address] [place] [address] [email or web address] 08/30/2025 11:00 AM EDT Office Visit [facility] [address] [place] [address] Perla Donovan PA [address] [place] [phone] Hardik Montanez, PT [address] [place] [address] [email or web address] Health Maintenance Due Date Last Done Comments Adult Td,Tdap Booster 1951 DEPRESSION SCREENING 1963 HEPATITIS C SCREENING 1969 COLOGUARD 1996 COLONOSCOPY 1996 COLORECTAL CANCER SCREENING 1996 FIT TEST 1996 FOBT 1996 SIGMOIDOSCOPY 1996 VIRTUAL COLONOSCOPY 1996 CREATININE LEVEL 12/03/2023 12/03/2022, 12/02/2022, 09/26/2020 POTASSIUM LEVEL 12/03/2023 12/03/2022, 12/02/2022, 09/26/2020 COVID-19 VACCINE (2023-2 5 season) 2024 03/10/2021, 02/17/2021 BLOOD PRESSURE 12/09/2025 06/08/2025 LIPID PANEL 03/26/2026 03/26/2025, 04/03/2006 PNEUMOCOCCAL VACCINES (50+ years) Completed 09/04/2021, 11/09/2018 ZOSTER VACCINES Completed 11/12/2021, 09/12/2021 RSV VACCINE Completed 09/28/2024 SMOKING STATUS SCREENING (On ce After 26 Yrs) Completed 06/09/2025 HEPATITIS A VACCINES Aged Out No long er eligible based on patient's age to complete this topic HIB VACCINES Aged Out No longer eligi ble based on patient's age to complete this topic MENINGOCOCCAL VACCINES (ACWY) Aged Out No longer eligible based on patient's age to complete this topic MENINGOCOCCAL VACCINES (B) Aged Out N o longer eligible based on patient's age to complete this topic Medical Devices Implanted Type Area Chief [facility] Device Identifier Shelf Expiration Date Model / Serial / Lot Wire Wire Procedures Procedure Name Priority Date/Time Associated Diagnosis Comments BASIC METABOLIC PANEL Routine 12/03/2022 5:19 AM EST from Last 3 Months or Most Recently Relevant to Health Maintenance Results * (ABNORMAL) Basic metabolic panel (12/03/2022 5:19 AM EST) SODIUM 142 133 - 146 mmol/L [facility] CHLORIDE 108 96 - 108 mmol/L [facility] POTASSIUM 3.6 3.3 - 5.1 mmol/L [facility] Comment:Specimen slightly he molyzed, result may be falsely elevated. CO2 26 21 - 35 mmol/L [facility] BUN 18 6 - 19 mg/dL [facility] CREATININE 1.10 0.5 - 1.5 mg/dL [facility] GLUCOSE 146(H) 70 - 99 mg/dL [facility] CALCIUM 8.7 8.4 - 10.3 mg/dL [facility] EGFR 72 >59 mL/min/1.7 3m2 [facility] Comment:Estimated glomerular filtration rate calculated using the CKD-EPI refit equation. ANION GAP 12 10 - 20 mmol/L [facility] Blood 12/03/2022 5:19 AM EST 12/03/2022 5:50 AM EST Fiona Hearn PA-C LAB BLOOD ORDERABLES Final Result [address] [id number] from Last 3 Months or Most Recently Relevant to Health Maintenance Insurance [facility] [place] [address] [place] [address] [facility] Advance Directives For more information, please contact: [phone] (9AM - 5PM [facility], Wednesday-Wednesday) * Full Code (Latest Code Status on File) Date Activated Date Inactivated Comments 12/02/2022 3:46 PM Question Answer Comments Code Status Confirmed With: Patient * Full Code Date Activated Date Inactivated Comments 12/02/2022 3:46 PM 12/02/2022 3:46 PM Question Answer Comments Code Status Confirmed With: Patient Care Teams Sports Physiologist Relationship Specialty Start Date End Date Ruslan Tarango MD [address] [place] [phone] PCP - General Internal Medicine 03/14/22 Additional Source Comments The information contained in this document represents components of the legal health record. It is not the complete legal health record.[facility]
== END 2025-06-27 14:39 | disposition home or self-care (01) ==
LOC: HO.HGI 13:43
PROVIDERS: PCP Internal Medicine; Visit Provider Nurse Practitioner
DX: D64.9 Anemia, unspecified (principal); D12.6 Benign neoplasm of colon, unspecified
CPT/HCPCS: 99213

== ENCOUNTER 2025-06-27 13:42 | Outpatient (REF) | payer BC, SELFPAY ==
[2025-06-27 16:42] LABS: Ferritin 10 ng/mL (20-250)
== END 2025-06-27 13:43 | disposition home or self-care (01) ==
LOC: HO.LAB 13:42
PROVIDERS: PCP Internal Medicine; Visit Provider Nurse Practitioner
DX: D12.6 Benign neoplasm of colon, unspecified (principal); D64.9 Anemia, unspecified; R53.83 Other fatigue; R53.1 Weakness; R19.7 Diarrhea, unspecified; Z80.0 Family history of malignant neoplasm of digestive organs; Z79.82 Long term (current) use of aspirin; Z79.899 Other long term (current) drug therapy
CPT/HCPCS: 36415; 82728

== ENCOUNTER 2025-08-15 08:13 | Day surgery (SDC) | payer BC, SELFPAY ==
--- OUTSIDE RECORDS SUMMARY | 2025-08-07 11:45 | XMS_ITS | Encounter Summary ---
Author Organization [facility] Address [address] [facility] [address] [place] [address] Phone Care Team Providers Care Vp Securities Name Role Phone Ruslan Tarango MD Primary Care Provider + Reason for Visit * Physical Therapy (Routine) - Authorized Specialty Diagnoses / Procedures Referred By Contact Referred To Contact Physical Therapy Diagnoses Encounter for rehabilitation Cervicalgia Ruslan Tarango MD [address] [facility] [address] [place] [address] Phone: tel: fax: [address] [address] Phone: tel: fax: Referral ID Status Reason Start Date Expiration Date V isits Requested Visits Authorized [id number] Authorized 07/31/2025 11/28/2025 26 26 Encounter Details Date Type Department Care Team (Late st Contact Info) Description 08/07/2025 11:45 AM EDT Office Visit [address] [address] Perla Donovan PA [address] [place] [phone] Hardik Montanez, PT [address] [place] [address] [email or web address] Cervicalgia (Primary Dx) Social History Tobacco Use Types Packs/Day Years Used Date Smoking Tobacco: Never Smokeless Tobacco: Never Alcohol Use Standard Drinks/Week Comments Not Currently [...] 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, 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, 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 Not on file Not on file Not on file documented as of this encounter Plan of Treatment Upcoming Encounters Date Type Department Care Team (Late st Contact Info) Description 08/13/2025 12:00 PM EDT Office Visit [address] [address] Perla Donovan PA [address] [place] [phone] Hardik Montanez, PT [address] [place] [address] [email or web address] 08/17/2025 11:45 AM EDT Office Visit [address] [address] Perla Donovan PA [address] [facility] [address] [place] [phone] Cha Esquivel PTA [address] [place] [address] 08/21/2025 2:15 PM EDT Office Visit [address] [address] Perla Donovan PA [address] [place] [address] Cha Esquivel, GASTROENTEROLOGY MANAGER [address] [place] [address] 08/23/2025 1:30 PM EDT Office Visit [address] [address] Perla Donovan PA [address] [place] [phone] Hardik Montanez, PT [address] [place] [address] 08/27/2025 11:45 AM EDT Office Visit [address] [address] Perla Donovan PA [address] [place] [address] Cha Esquivel PTA [address] [place] [address] 08/30/2025 11:00 AM EDT Office Visit [address] [address] Perla Donovan PA [address] [place] [address] Hardik Montanez, PT [address] [place] [address] documented as of this encounter Visit Diagnoses Diagnosis Cervicalgia- Primary documented in this encounter Care Teams Vp Securities Relationship Specialty Start Date End Date Ruslan Tarango MD [address] [place] [phone] PCP - General Internal Medicine 03/14/22 documented as of this encounter Additional Source Comments The information contained in this document represents components of the legal health record. It is not the complete legal health record.[facility]
--- OUTSIDE RECORDS SUMMARY | 2025-08-08 06:53 | XMS_ITS | Clinical Summary ---
Author Organization [facility] Address [address] [facility] [place] [address] Phone Care Team Providers Care Communications Field Technician Name Role Phone Ruslan Tarango MD Primary Care Provider [phone] Allergies Active Allergy Reactions Criticality Noted Date [...] (one) time each day. 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 Most recent [...] Brain TIA 02/25/2022 Overview (11/03/2024): D/C'd from [facility] 02/07/22 Last Assessment & Plan: Patient [...] documented Lightheadedness 02/25/2022 Overview (11/03/2024): D/C'd from [facility] [place] 02/07/22 Chest tightness 02/25/2022 Overview (11/03/2024): D/C'd from [facility] on 02/07/22 Acute renal failure (ARF) ([facility] V24) 02/26/20 Overview (11/03/2024): D/C'd from [facility] [place] 02/07/22 CAD in [place] artery 07/18/2021 Overview (11/03/2024): Last Assessment & [...] pressure reading in the office today likely digital media representative of whitecoat effect to some degree. [...] syncope 02/25/2022 01/26/2025 Overview (11/03/2024): D/C'd from [facility] [place] 02/07/22 Surgical History Surgery Date Site/Laterality Comments CORONARY ARTERY BYPASS GRAFT PROCEDURE: HISTORICAL CABG CARDIAC CATHETERIZATION PROCEDURE: HISTORICAL CARDIAC CATH KNEE ARTHROSCOPY W/ MENISCAL REPAIR PROCEDURE: CO ARTHROSCOPY KNEE W/MENISCUS RPR MEDIAL/LATERAL Medical History [...] [facility]22 Acute renal failure (ARF) ([facility] V24) DX:Acute renal failure (ARF) ([facility]); COMMENT: D/C'd from [facility] on 02/07/22 Anxiety DX:Anxiety; COMM ENT: D/C'd from [facility] on 02/07/22 Chronic renal disease DX:Chronic renal disease Chronic fatigue syndrome DX:Stenotypist eddie fatigue syndrome Backache DX:Backache Idiopathic osteoporosis [...] Description 08/10/2025 1:30 PM EDT Office Visit [facility] [address] [place] [address] Jeffrey Carreno MD [address] [place] [address] [address] [place] [address] Health Maintenance Due Date Last Done Comments [...] Routine 03/26/2025 9:36 AM EDT CAD in [place] artery Mixed hyperlipidemia ANNUAL BMP BLOOD TEST [...] AM EDT Performed at: 01 - [facility] [address] [id number] Obstetrics Teacher: Bernarda Salazar MD, Phone: [phone] us Valentina Brito NP LAB BLOOD ORDERABLES Final R esult [facility] 1 * Annual BMP Blood Test (12/03/2022) Pathologist [facility] Annual BMP Blood Test abstracted us Historical Provider HEALTH MAINTENANCE Final Result from Last 3 Months or Most Recently Relevant to Health [place] [id number] MEDICARE [facility] Care Teams Communications Field Technician Relationship Specialty Start Date End Date Ruslan Tarango MD [address] [place] [address] [address] [place], [place] PCP - General Internal Medicine 07/18/21
--- OUTSIDE RECORDS SUMMARY | 2025-08-08 06:53 | XMS_ITS | Patient Health Record ---
Author Organization [facility] Address [address] [place] [address] Care Team Providers Care Insurance Agency Sales Manager Name Role Phone Yg BARON, Vic Primary Care Provider Wen Filipe Lakhani [phone] Allergies Allergen (clinical drug ingredient) Drug/Non Drug [...] W/U Status Risk Notes Problem Esophageal reflux (524300295) Esophageal reflux (530.81) Active confirmed Problem Irritable bowel syndrome (40720053) Irritable bowel syndrome (564.1) Active confirmed Plan Of Treatment No Information Insurance Providers Payer Name Payer Address Payer Phone Subscriber Number Group Number Insured Name Patient Relationship to Insured Coverage Start Date Coverage End Date [facility] [address] [place] [address] [id number] SUSHANT FARAH Self - patient is the insured Medical (General) History Medical History History ICD Code negative cardiac catheteriza tion per history of present illness. Otherwise per old record
--- OUTSIDE RECORDS SUMMARY | 2025-08-08 06:53 | XMS_ITS | Clinical Summary ---
Author Organization [facility] Address [address] [place] [phone] Phone Care Team Providers Care Tuber Machine Cutter Name Role Phone Ruslan Tarango MD Primary [...] MG tablet Take 20 mg by mouth. 10/29/2023 Active omega-3 acid ethyl esters (LOVAZA) 1 gram capsule Take 1,200 mg by mouth 2 (two) times a day. Active tadalafiL (CIALIS) 5 MG tablet Take 5 mg by mouth every other day. Active hydrALAZINE (APRESOLINE) 25 MG tablet Take 25 mg by mouth 2 (two) times a day. 05/10/2025 Active dicyclomine (BENTYL) 20 mg tablet Take 20 mg by mouth 4 (four) times a day. 04/05/2025 Active LAXATIVE, BISACODYL, 5 mg Tab tablet TAKE 2 TABLETS BY MOUTH AT BEDTIME FOR 2 DAYS 04/05/2025 Active ascorbic acid, vitamin C, (VITAMIN C) 1000 MG tablet Take 1,000 mg by mouth. 04/20/2025 04/20/20 26 Active Active Problems Problem Noted Date Diagnosed [...] artery disease 07/20/2011 Overview (12/02/2022): Dr. Almodovar [facility] Assessment & Plan (12/03/2022 7:41 AM EST): Continue aspirin, statin, fenofibrate, co-Q10, metoprolol, omega-3. Encounters Date Type Department Care Team Description 08/07/2025 11:45 AM EDT Office Visit [address] [address] Perla Donovan PA Mitchell, Ian, PT Cervicalgia (Primary Dx) 07/31/2025 11:45 AM EDT Office Visit [address] [address] Perla Donovan PA Mitchell, Ian, PT Cervicalgia (Primary Dx) 06/15/2025 Transcribe Orders [facility] [address] [place] [address] María Lamas Encounter for rehabilitation (Primary Dx) 06/09/2025 10:15 AM EDT - 06/09/2025 3:13 PM EDT Emergency [facility] [address] [place] [address] Discharge Disposition: Home or Self Care 06/08/2025 1:40 PM EDT Office Visit [facility] at [address] [address] Latoya Ribera, DAWOOD Neck pain (Primary Dx) [...] 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, 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, 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 Not on file [...] Description 08/13/2025 12:00 PM EDT Office Visit [address] [address] Perla Donovan PA [address] [place] [phone] Hardik Montanez, PT [address] [place] [address] 08/17/2025 11:45 AM EDT Office Visit [address] [address] Perla Donovan PA [address] [place] [phone] Cha Esquivel PTA [address] [place] [address] 08/21/2025 2:15 PM EDT Office Visit [address] [address] Perla Donovan PA [address] [place] [address] Cha Esquivel [address] [address] 08/23/2025 1:30 PM EDT Office Visit [address] [address] Perla Donovan PA [address] [place] [phone] Hardik Montanez, PT [address] [place] [address] 08/27/2025 11:45 AM EDT Office Visit [address] [address] Perla Donovan PA 75 [facility] [address] [place] [address] Cha Esquivel [address] [address] 08/30/2025 11:00 AM EDT Office Visit [address] [address] Perla Donovan PA 75 [facility] [address] [place] [address] Hardik Montanez, PT [address] [place] [address] Health Maintenance Due Date Last Done Comments Adult Td,Tdap Booster 1951 DEPRESSION SCREENING 1963 HEPATITIS C SCREENING 1969 COLOGUARD 1996 COLONOSCOPY 1996 COLORECTAL CANCER SCREENING 1996 FIT TEST 1996 FOBT 1996 SIGMOIDOSCOPY 1996 VIRTUAL COLONOSCOPY 1996 CREATININE LEVEL 12/03/2023 12/03/2022, 02/2023, 09/26/2020 POTASSIUM LEVEL 12/03/2023 12/03/2022, 01/0 02/2023, 09/26/2020 INFLUENZA VACCINE (#1) 2025 , 09/24/2023, 09/25/2022, Additional history exists COVID-19 VACCINE ( season) 2025 03/10/2021, 02/17/2021 BLOOD PRESSURE 12/09/2025 06/08/2025 LIPID PANEL 03/26/2026 03/26/2025, 04/03/2006 PNEUMOCOCCAL VACCINES (50+ years) Completed 09/04/2021, 11/09/2018 ZOSTER VACCINES Completed 11/12/2021, 09/12/2021 RSV VACCINE Completed 09/28/2024 SMOKING STATUS SCREENING (Once After 26 Yrs) Completed 06/09/2025 HEPATITIS A [...] this topic Medical Devices Implanted Type Area Vba Programmer Device Identifier Shelf Expiration Date Model / Serial / Lot Wire Wire Procedures Procedure Name Priority Date/Time Associated Diagnosis Comments BASIC METABOLIC PANEL Routine 12/03/2022 5:19 AM EST from Last 3 Months or Most Recently Relevant to Health Maintenance Results * (ABNORMAL) Basic metabolic panel (12/03/2022 5:19 AM EST) SODIUM 142 133 - 146 mmol/L [facility] CHLORIDE 108 96 - 108 mmol/L [facility] POTASSIUM 3.6 3.3 - 5.1 mmol/L [facility] Comment:Specimen slightly he molyzed, result may be falsely elevated. CO2 26 21 - 35 mmol/L [facility] BUN 18 6 - 19 mg/dL [facility] CREATININE 1.10 0.5 - 1.5 mg/dL [facility] GLUCOSE 146(H) 70 - 99 mg/dL [facility] CALCIUM 8.7 8.4 - 10.3 mg/dL [facility] EGFR 72 >59 mL/min/1.7 3m2 [facility] Comment:Estimated glomerular filtration rate calculated using the CKD-EPI refit equation. ANION GAP 12 10 - 20 mmol/L [facility] Blood 12/03/2022 5:19 AM EST 12/03/2022 5:50 AM EST Fiona Hearn PA-C LAB BLOOD ORDERABLES Final Result [facility] [address] [place] [address] from Last 3 Months or Most Recently Relevant to Health Maintenance Insurance [facility] [address] [place] [address] [place] [address] [facility] Advance Directives For more information, please contact: [phone] (9AM - 5PM [place], Wednesday-Wednesday) * Full Code (Latest Code Status on File) Date Activated Date Inactivated Comments 12/02/2022 3:46 PM Question Answer Comments Code Status Confirmed With: Patient * Full Code Date Activated Date Inactivated Comments 12/02/2022 3:46 PM 12/02/2022 3:46 PM Question Answer Comments Code Status Confirmed With: Patient Care Teams Tuber Machine Cutter Relationship Specialty Start Date End Date Ruslan Tarango MD [address] [phone] PCP - General Internal Medicine 03/14/22 Additional Source Comments The information contained in this document represents components of the legal health record. It is not the complete legal health record.[facility]
--- OUTSIDE RECORDS SUMMARY | 2025-08-08 06:53 | XMS_ITS | Encounter Summary ---
Author Organization [facility] Address [address] [facility] [address] [place] [phone] Phone Care Team Providers Care Comic Book Writer Name Role Phone Ruslan Tarango MD Primary Care Provider + Encounter Details Date Type Department Care Team (Late st Contact Info) Description 12/02/2022 Procedure Pass OR Admitting Dept - Virtual Department [address] [place] [address] Social History Tobacco Use Types Packs/Day Years Used Date Smoking Tobacco: Never Smokeless Tobacco: Never Alcohol Use Standard Drinks/Week Comments Not Currently 0 (1 standard drink = 0.6 oz pure alcohol) occasionally, 1 drink weekly or so Intimate Partner Violence Answer Date R ecorded Are you denied basic needs s uch as food, clothing, or medical care? No 12/02/2022 In the past 12 months have y ou been in a relationship with a person who hurts, threatens, or tries to control you? No 12/02/2022 Are you denied basic needs s [facility] as food, clothing, or medical care? No 12/02/2022 In the past 12 months have y ou been in a relationship with a person who hurts, threatens, or tries to control you? 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 Wish to be (Past 1 Month) No 023 5:48 PM Shira Cruz, NGUYỄN 2. Non-Specific Active Suici yari Thoughts (Past 1 Month) No 12/02/2022 5:48 PM Shira Cruz , NGUYỄN 6. Suicidal Behavior (Lifetime) No 5:48 PM Shira Cruz, NGUYỄN documented as of this encounter Plan of Treatment Upcoming Encounters Date Type Department Care Team (Late st Contact Info) Description 08/13/2025 12:00 PM EDT Office Visit [address] [address] Perla Donovan PA [address] [place] [phone] Hardik Montanez, PT [address] [place] [address] 08/17/2025 11:45 AM EDT Office Visit [address] [address] Perla Donovan PA [address] [place] [phone] Cha Esquivel PTA [address] [place] [address] 08/21/2025 2:15 PM EDT Office Visit [address] [address] Perla Donovan PA [address] [place] [phone] Truehart, Cha, [address] [address] 08/23/2025 1:30 PM EDT Office Visit [address] [address] Perla Donovan PA [address] [place] [phone] Hardik Montanez, PT [address] [place] [address] 08/27/2025 11:45 AM EDT Office Visit [address] [address] Perla Donovan PA [address] [place] [phone] Naziarochelle Cha, [address] [address] 08/30/2025 11:00 AM EDT Office Visit [address] [address] Perla Donovan PA [address] [place] [phone] Hardik Montanez, PT [address] [place] [address] documented as of this encounter Visit Diagnoses Not on filedocumented in this encounter Care Teams Comic Book Writer Relationship Specialty Start Date End Date Ruslan Tarango MD [address] [place] [phone] PCP - General Internal Medicine 03/14/22 documented as of this encounter Additional Source Comments The information contained in this document represents components of the legal health record. It is not the complete legal health record.[facility]
[2025-08-13 14:35] VITALS: BMI 34.4
--- NOTE | 2025-08-14 09:14 | HO.ANESPROP2 ---
Documented by User: Magali Chinchilla NP 08/14/25 09:19 HPI - Anesthesia Eval Consult details Narrative: 75yo M for Upper Endoscopy and Colonoscopy Cardiac optimized. CAD s/p CABG: Follows Cardiology. Per 08/10/25 office visit... myocardial infarction subsequent bypass including EVANGELISTA graft LAD in 2002. Patient is hypertension, hyperlipidemia obstructive sleep apnea for which he has a CPAP at night history of PVCs. Occasional runs of nonsustained VT in the past seen by EP service felt that a defibrillator or further EP evaluation did not need to be done at that time. [facility] Active Problems Active Problems: All Active Problems Family history of colon cancer in mother (Acute) Tubular adenoma of colon (Acute) Chronic kidney disease (Acute) BPH (benign prostatic hyperplasia) (Acute) Lumbar degenerative disc disease (Acute) Anxiety (Acute) GERD (gastroesophageal reflux disease) (Acute) Idiopathic osteoporosis (Acute) Coronary artery disease (Acute) High cholesterol (Acute) Hypertension (Acute) Obesity (BMI 30.0-34.9) (Acute) RLS (restless legs syndrome) (Acute) TAI (obstructive sleep apnea) (Acute) Diarrhea (Acute) Anemia (Acute) Pre-op examination (Acute) Past Medical History Medical History (Updated 08/15/25 @ 09:42 by Cherelle Strauss RN) H/O Catalan's palsy Acute renal failure Paroxysmal ventricular tachycardia Aortic valvar stenosis TIA (transient ischemic attack) BPH (benign prostatic hyperplasia) Lumbar degenerative disc disease Idiopathic osteoporosis Anemia Anemia TAI (obstructive sleep apnea) RLS (restless legs syndrome) HTN (hypertension) Chronic renal insufficiency Anxiety GERD (gastroesophageal reflux disease) Elevated cholesterol CAD (coronary artery disease) Family History Family History Mother Colon cancer Surgical History Surgical History (Updated 08/15/25 @ 09:35 by Cherelle Strauss RN) History of prostate surgery S/P CABG (coronary artery bypass graft) Status post medial meniscus repair Hx of colonoscopy History of esophagogastroduodenoscopy (EGD) Social History Social History Alcohol intake: current Alcohol intake frequency: holidays/special occasions only Patient Tobacco Use Status: Never used Tobacco Use of substances other than those prescribed or required for medical reasons: No Are you DNR?: No Advance Directives: No Advance Directives Information Provided: Yes Poor oral hygiene: No Meds Allergies Allergy/AdvReac Type Severity Reaction Status Date / Time house dust mite Allergy Mild Unknown Verified 06/27/25 13:56 cashew nut AdvReac Severe Diarrhea Verified 08/15/25 09:33 atorvastatin AdvReac Intermediate Unknown Unverified 08/15/25 09:32 cardiac lead adhesive Allergy Mild Rash Uncoded 04/05/25 17:11 hayfever Allergy Mild Unknown Uncoded 04/05/25 09:01 Home Medications ?Medication ?Instructions ?Recorded ?Confirmed ?Last Taken ?Type amlodipine 5 mg tablet 5 mg PO DAILY 04/05/25 08/13/25 08/15/25 History aspirin 81 mg tablet,delayed 81 mg PO DAILY 04/05/25 08/13/25 Unknown History release citalopram 10 mg tablet 10 mg PO BEDTIME 04/05/25 08/15/25 Unknown History coenzyme Q10 200 mg/gram oral 200 mg PO DAILY 04/05/25 08/13/25 Unknown History powder (H2Q CoQ10) esomeprazole magnesium 20 mg 20 mg PO DAILY 04/05/25 08/13/25 08/15/25 History capsule,delayed release (Nexium) famotidine 20 mg tablet 20 mg PO BID 04/05/25 08/13/25 08/15/25 History fenofibrate 54 mg tablet 54 mg PO DAILY 04/05/25 08/13/25 Unknown History finasteride 5 mg tablet 5 mg PO DAILY 04/05/25 08/13/25 Unknown History hydralazine 25 mg tablet 25 mg PO BID 04/05/25 08/13/25 Unknown History irbesartan 300 mg tablet 300 mg PO DAILY 04/05/25 08/13/25 Unknown History metoprolol succinate 50 mg 50 mg PO BEDTIME 04/05/25 08/15/25 Unknown History tablet,extended release 24 hr nettle leaf (bulk) 2 % powder ea miscellaneous 04/05/25 06/27/25 Unknown History omega-3 fatty acids 1,000 mg 1,000 mg PO DAILY 04/05/25 08/13/25 Unknown History capsule rosuvastatin 10 mg tablet 10 mg PO DAILY 04/05/25 08/13/25 Unknown History triamterene 37.5 1 tab PO DAILY 04/05/25 08/13/25 Unknown History mg-hydrochlorothiazide 25 mg tablet ascorbic acid (vitamin C) 500 mg 500 mg PO DAILY 06/27/25 08/13/25 Unknown History capsule ferrous fumarate 325 mg (106 mg 325 mg PO DAILY 06/27/25 08/13/25 Unknown History iron) tablet polyethylene glycol 3350 17 17 g PO DAILY 06/27/25 08/13/25 Unknown History gram/dose oral powder (Miralax) Exam Height,Weight and Vital Signs: Height 5 ft 8 in Weight 102.512 kg Pertinent Lab Results Pertinent Lab Results: Laboratory Tests 04/05/25 10:40 WBC 5.8 Hgb 9.9 L Hct 31.0 L Plt Count 344 Sodium 141 Potassium 3.9 Chloride 108 Carbon Dioxide 25 BUN 19 H Creatinine 1.04 Narrative Narrative: EKG 07/2025 Ventricular Rate ECG 51 ? Atrial Rate 51 ? P-R Interval 160 ? QRS Duration 120 ? Q-T Interval 454 ? QTc 418 ? P Wave [place]in[place] 15 ? R [place] 24 ? T [place] 36 ? ECG Interpretation ? ? ? Sinus bradycardia with Premature atrial complexesSeptal infarct , age undeterminedAbnormal ECGWhen compared with ECG of 20-APR-2025 15:14,Premature atrial complexes are now PresentNonspecific T wave abnormality now evident in Lateral leads ECHO 12/2024 ? Left ventricle cavity size is normal. Left ventricular systolic function is in the normal range with an ejection fraction of 60-65%. Definity contrast used to delineate endocardial borders previously known apical septal and apical infarct identified ? Regional LV wall motion abnormalities noted. See wall scoring diagram. ? Left ventricle mild concentric hypertrophy. ? Right ventricle cavity is mildly enlarged. ? Aortic valve leaflets are mildly thickened. Assessment and Plan Assessment Anesthesia Assessment: Chart Reviewed Documented by User: Lashay Mendez MD 08/15/25 09:44 [facility] Past Medical History Medical History (Updated 08/15/25 @ 09:42 by Cherelle Strauss RN) H/O Catalan's palsy Acute renal failure Paroxysmal ventricular tachycardia Aortic valvar stenosis TIA (transient ischemic attack) BPH (benign prostatic hyperplasia) Lumbar degenerative disc disease Idiopathic osteoporosis Anemia Anemia TAI (obstructive sleep apnea) RLS (restless legs syndrome) HTN (hypertension) Chronic renal insufficiency Anxiety GERD (gastroesophageal reflux disease) Elevated cholesterol CAD (coronary artery disease) Family History Family History Mother Colon cancer Family history of problems with anesthesia: No Surgical History Surgical History (Updated 08/15/25 @ 09:35 by Cherelle Strauss RN) History of prostate surgery S/P CABG (coronary artery bypass graft) Status post medial meniscus repair Hx of colonoscopy History of esophagogastroduodenoscopy (EGD) History of Problems with Anesthesia: No Social History Social History Alcohol intake: current Alcohol intake frequency: holidays/special occasions only Patient Tobacco Use Status: Never used Tobacco Use of substances other than those prescribed or required for medical reasons: No Are you DNR?: No Advance Directives: No Advance Directives Information Provided: Yes Poor oral hygiene: No Meds Allergies Allergy/AdvReac Type Severity Reaction Status Date / Time house dust mite Allergy Mild Unknown Verified 06/27/25 13:56 cashew nut AdvReac Severe Diarrhea Verified 08/15/25 09:33 atorvastatin AdvReac Intermediate Unknown Unverified 08/15/25 09:32 cardiac lead adhesive Allergy Mild Rash Uncoded 04/05/25 17:11 hayfever Allergy Mild Unknown Uncoded 04/05/25 09:01 Home Medications ?Medication ?Instructions ?Recorded ?Confirmed ?Last Taken ?Type amlodipine 5 mg tablet 5 mg PO DAILY 04/05/25 08/13/25 08/15/25 History aspirin 81 mg tablet,delayed 81 mg PO DAILY 04/05/25 08/13/25 Unknown History release citalopram 10 mg tablet 10 mg PO BEDTIME 04/05/25 08/15/25 Unknown History coenzyme Q10 200 mg/gram oral 200 mg PO DAILY 04/05/25 08/13/25 Unknown History powder (H2Q CoQ10) esomeprazole magnesium 20 mg 20 mg PO DAILY 04/05/25 08/13/25 08/15/25 History capsule,delayed release (Nexium) famotidine 20 mg tablet 20 mg PO BID 04/05/25 08/13/25 08/15/25 History fenofibrate 54 mg tablet 54 mg PO DAILY 04/05/25 08/13/25 Unknown History finasteride 5 mg tablet 5 mg PO DAILY 04/05/25 08/13/25 Unknown History hydralazine 25 mg tablet 25 mg PO BID 04/05/25 08/13/25 Unknown History irbesartan 300 mg tablet 300 mg PO DAILY 04/05/25 08/13/25 Unknown History metoprolol succinate 50 mg 50 mg PO BEDTIME 04/05/25 08/15/25 Unknown History tablet,extended release 24 hr nettle leaf (bulk) 2 % powder ea miscellaneous 04/05/25 06/27/25 Unknown History omega-3 fatty acids 1,000 mg 1,000 mg PO DAILY 04/05/25 08/13/25 Unknown History capsule rosuvastatin 10 mg tablet 10 mg PO DAILY 04/05/25 08/13/25 Unknown History triamterene 37.5 1 tab PO DAILY 04/05/25 08/13/25 Unknown History mg-hydrochlorothiazide 25 mg tablet ascorbic acid (vitamin C) 500 mg 500 mg PO DAILY 06/27/25 08/13/25 Unknown History capsule ferrous fumarate 325 mg (106 mg 325 mg PO DAILY 06/27/25 08/13/25 Unknown History iron) tablet polyethylene glycol 3350 17 17 g PO DAILY 06/27/25 08/13/25 Unknown History gram/dose oral powder (Miralax) Exam Airway Mallampati Class: II (caps, arevalo laterally, nothing in front top and bottom) TM Dist: >3cm Neck ROM: Full Heart: rrr Lungs: cta Assessment and Plan Assessment Anesthesia Assessment: Anesthesia Plan Discussed Final Anesthetic Review Family History of Problems with Anesthesia: No History of Problems with Anesthesia: No NPO: Yes ASA Class: II Final Preanesthetic Review: No Changes in Pt Med Stat, Meds/Allgs Chart Reviewed and Consent Obtained/Reviewed Patient Risk: Low Procedure Risk: Intermediate Anesthetic Plan Anesthetic Plan: MAC: Disposition: Standard PACU
[2025-08-15 09:39] VITALS: BMI 33.3
[2025-08-15 09:42] VITALS: BP 178/83; PULSE 60; RESP 16; TEMP 36.8; O2SAT 98
[2025-08-15] MEDS: Lactated Ringers 1,000 ML 100 ML IVCONT (10:14)
--- NOTE | 2025-08-15 10:31 | MHC.SHP ---
Pre-Procedural Eval Section A - 24 Hr Update-Section A only Date of Service: 08/15/25 Section B - Complete if H&P > 30 days Chief Complaint: anemia,dysphagia Relevant Family History (Specify if Yes): Yes Relevant Social History: None Present Medications: see Short Stay Collaborative assessment Medical History: Significant History (MA, CKD, GERD, TAI, RLS ) History of Previous Operations: Relevant previous surgery/procedure and date(s) (History of prostate surgery S/P CABG (coronary artery bypass graft) Status post medial meniscus repair Hx of colonoscopy History of esophagogastroduodenoscopy (EGD)) Allergies: Allergies Allergy/AdvReac Type Severity Reaction Status Date / Time house dust mite Allergy Mild Unknown Verified 06/27/25 13:56 cashew nut AdvReac Severe Diarrhea Verified 08/15/25 09:33 atorvastatin AdvReac Intermediate Unknown Verified 08/15/25 10:12 cardiac lead adhesive Allergy Mild Rash Uncoded 04/05/25 17:11 hayfever Allergy Mild Unknown Uncoded 04/05/25 09:01 Review of Systems Sugical H&P ROS: Negative: Constitution, Cardiovascular, Respiratory, Neurological, Psychiatric, Hem-Onc, Allergic/Immunologic, Gastrointestinal, Genitourinary, Musculoskeletal, Integumentary, Endocrine and Eyes/Ears/Nose/Throat Exam Surgical H&P Exam: Normal: HEENT, Normal: Heart, Normal: Lungs, Normal: Extremities, Normal: Abdomen, Normal: Skin and Normal: Neurological Plan Diagnosis/Plan: Unchanged I have reviewed the history and physical and performed a pertinent physical examination on my patient. No changes have occurred unless specified. Time Spent With Patient Time: Total time managing care of this patient today ____ minutes.
--- NOTE | 2025-08-15 11:14 | P.OPN-COLO_ITS ---
Colonoscopy Operative Note Operative Note Date of Service: 08/15/25 Narrative: Operative Information Procedure Description: EGD, Colonoscopy Indication: anemia Anesthesia: MAC FLEXIBLE TRANSORAL UPPER GASTROINTESTINAL ENDOSCOPY AND COLONOSCOPY PROCEDURE NOTE UPPER ENDOSCOPY Consent: Indications for the procedure and potential complications of bleeding, perforation, reaction to medications and missed diagnosis were discussed with the patient and informed consent was obtained. Instrument: Olympus GIF H 190 J mid size upper endoscope Monitoring: Vital signs and clinical assessment, continuous EKG monitoring, Pulse oximetry, Carbon Dioxide monitoring and blood pressure monitoring were done throughout the procedure. Procedure: The patient was placed in the left lateral decubitis position and pre-procedure medications were administered and a bite block was placed. The endoscope was inserted into the mouth and advanced under direct vision to the third part of duodenum. A careful inspection was made as the upper endoscope was withdrawn including a retroflexed examination of the proximal stomach; Findings and interventions are described below. Findings: Larynx:normal Esophagus: GE junction at 40 cm, diaphragm hiatus at 42 cm, normal mucosa, bx taken from distal esophagus, schatzki ring noted with 2 cm hiatal hernia Stomach: patchy erythema. Biopsies were obtained. Grade 2 flap valve on retroflexed examination of the cardia. Duodenum: Normal bulb and descending duodenum, bx taken Intervention: Biopsies as noted above, COLONOSCOPY Instrument: Olympus variable stiffness pediatric scope 190L Colonoscopy Monitoring: Vital signs and clinical assessment, continuous EKG monitoring, Pulse oximetry, Carbon Dioxide monitoring and blood pressure monitoring were done throughout the procedure. Colon withdrawal time was 14 minutes. Procedure: The patient was placed in the left lateral decubitis position and pre-procedure medications were administered. After a digital rectal examination of the ano-rectum, the video colonoscope was inserted into the rectum and advanced through the colon to the cecum/TI. The colonoscope was slowly withdrawn in a retrograde panoramic fashion and the colon mucosa was carefully examined including a retroflexed view of the rectum. Findings and interventions are described below. Procedure Difficulty:moderate Findings: Terminal Ileum-normal Cecum: diverticula noted Ascending Colon: normal Transverse Colon - 10 mm sessile polyp lifted with eleview and removed with cold snare Descending Colon: 8-9 mm sessile polyp removed with cold snare Sigmoid Colon: moderate severe diverticulosis Rectum: Retroflexion with medium sized internal hemorrhoids, grade I Anorectum - normal Colon preparation: [place] Bowel Preparation Scale Right colon; 2 Transverse colon: 2 Left colon; 2 (0 = Unprepared colon segment with mucosa not seen due to solid stool that cannot be cleared. 1 = Portion of mucosa of the colon segment seen, but other areas of the colon segment not well seen due to staining, residual stool and/or opaque liquid. 2 = Minor amount of residual staining, small fragments of stool and/or opaque liquid, but mucosa of colon segment seen well. 3 = Entire mucosa of colon segment seen well with no residual staining, small fragments of stool or opaque liquid) Impression and Post Procedure Diagnosis: Endoscopy Findings: hiatal hernia schatzki ring gastritis Colonoscopy Findings: diverticulosis colon polyps x 2 internal hemorrhoids Plan: Await Pathology results Repeat Colonoscopy in 5 years if health allows or earlier if clinically indicated High fiber diet leaflet avoid straining at stool, epsom salts and sitz bath, anusol supps or cream consider small bowel capsule study Above findings were reviewed with the patient and relevant handouts were provided if indicated.
[2025-08-15 11:20] VITALS: BP 122/61; PULSE 53; RESP 16; TEMP 36.9; O2SAT 100
[2025-08-15 11:35] VITALS: BP 131/73; PULSE 52; RESP 20; O2SAT 96
[2025-08-15 11:55] VITALS: TEMP 36.9
== END 2025-08-15 12:13 | disposition home or self-care (01) ==
PROVIDERS: PCP Internal Medicine; Visit Provider Internal Medicine Gastroenterology
PROC: (CPT 45385; principal; 2025-08-15 11:10)
DX: D64.9 Anemia, unspecified (principal); D12.3 Benign neoplasm of transverse colon; D12.4 Benign neoplasm of descending colon; K57.30 Diverticulosis of large intestine without perforation or abscess without bleeding; K64.0 First degree hemorrhoids; Z86.0101 Personal history of adenomatous and serrated colon polyps; Z80.0 Family history of malignant neoplasm of digestive organs; R13.10 Dysphagia, unspecified; K22.2 Esophageal obstruction; K29.60 Other gastritis without bleeding; K29.80 Duodenitis without bleeding; K44.9 Diaphragmatic hernia without obstruction or gangrene; G47.33 Obstructive sleep apnea (adult) (pediatric); Z79.02 Long term (current) use of antithrombotics/antiplatelets; Z79.899 Other long term (current) drug therapy
CPT/HCPCS: 45385; 45381; 43239; 88305; 88313; 88342; J2704

== ENCOUNTER → 2025-08-15 08:13 | Outpatient (BNV) | payer BC, SELFPAY | PROVIDERS: PCP Internal Medicine; Visit Provider Internal Medicine Gastroenterology | DX: D64.9 Anemia, unspecified (principal); K22.2 Esophageal obstruction; K29.70 Gastritis, unspecified, without bleeding; D12.3 Benign neoplasm of transverse colon; D12.4 Benign neoplasm of descending colon; K57.90 Diverticulosis of intestine, part unspecified, without perforation or abscess without bleeding; K64.0 First degree hemorrhoids | CPT/HCPCS: 43239; 45381; 45385 ==

== ENCOUNTER 2025-09-18 09:15 | Outpatient (AMB) | payer BC, SELFPAY ==
--- NOTE | 2025-09-18 09:21 | MHC.OFFVIS ---
Vital Signs 09/18/25 09:41 Height 5 ft 8 in Weight 221 lb BMI 33.6 Intake Visit Reasons: s/p EGD and colonoscopy Intake Note: Pt in office today s/p EGD and colonoscopy. CC: Patient reports doing well and denies having any new GI symptoms today. 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 Required: No Accompanied by: Self / Same As Patient Allergies house dust mite Allergy (Mild, Verified 09/18/25 09:51) Unknown cashew nut Adverse Reaction (Severe, Verified 09/18/25 09:51) Diarrhea atorvastatin Adverse Reaction (Intermediate, Verified 09/18/25 09:51) Unknown cardiac lead adhesive Allergy (Mild, Uncoded 04/05/25 17:11) Rash hayfever Allergy (Mild, Uncoded 04/05/25 09:01) Unknown HPI HPI s/p EGD and colonoscopy: Details: Assessment & Plan (1) Anemia: Code(s): D64.9 - Anemia, unspecified Category: Medical (2) Tubular adenoma of colon: Code(s): D12.6 - Benign neoplasm of colon, unspecified Category: Medical Plan He is on esomeprazole 20 mg once a day, famotidine 20 mg twice a day, and dicyclomine 20 mg up to 4 times a day. He brought labs from [facility] showing slight improvement in his hg/hct. He still is quite fatigued and still can't mow the lawn r/t weakness and fatigue. His SOB has improved. However, he was told by his primary to only take his iron 3 times a week because the serum iron levels and the saturation was high. I explained that this is an under informed instruction, as this is a normal physiologic response to taking iron and you can not diagnose overload utilizing these parameters, you need to look at the transferrin and the ferritin levels. His ferritin was extremely low when I did it in March so I expect that he is not yet completely repleted. I advise him to continue taking iron daily. He is taking this along with a vitamin-C supplement and a little bit of MiraLax to prevent constipation. Has not yet tried the dicyclomine as his bowels have not been too bad recently. He can keep that in his tool kit in case she develops more cramping and diarrhea. I am going to try to move up his EGD and colonoscopy to explore why this gentleman is not able to maintain his iron. Hopefully he is not losing it through the GI system but that is what we need to rule out. He also be seeing Hematology at [facility] soon to get their view on what might be the problem. The patient would prefer not to do the procedures in June because he had a lot of appointments that month but July would be better. He says that my tip of taking his melatonin earlier in the day has helped him to become sleepy at the correct time of day and his sleep initiation is improved. ROV 3 mos. Orders: Orders EGD/[place] Combo - GI Use Only Today D12.6 - Benign neoplasm of colon, unspecified, D64.9 - Anemia, unspecified Ferritin Today D64.9 - Anemia, unspecified Laboratory Tests 06/27/25 14:51 Ferritin 10 L EGD/COLONOSCOPY 08/15/25 Findings: Larynx:normal Esophagus: GE junction at 40 cm, diaphragm hiatus at 42 cm, normal mucosa, bx taken from distal esophagus, schatzki ring noted with 2 cm hiatal hernia Stomach: patchy erythema. Biopsies were obtained. Grade 2 flap valve on retroflexed examination of the cardia. Duodenum: Normal bulb and descending duodenum, bx taken Findings: Terminal Ileum-normal Cecum: diverticula noted Ascending Colon: normal Transverse Colon - 10 mm sessile polyp lifted with eleview and removed with cold snare Descending Colon: 8-9 mm sessile polyp removed with cold snare Sigmoid Colon: moderate severe diverticulosis Rectum: Retroflexion with medium sized internal hemorrhoids, grade I Anorectum - normal Impression and Post Procedure Diagnosis: Endoscopy Findings: hiatal hernia schatzki ring gastritis Colonoscopy Findings: diverticulosis colon polyps x 2 internal hemorrhoids Plan: Await Pathology results Repeat Colonoscopy in 5 years if health allows or earlier if clinically indicated High fiber diet leaflet avoid straining at stool, epsom salts and sitz bath, anusol supps or cream consider small bowel capsule study BIOPSY Received: 08/15/25 Diagnosis A. Duodenum, biopsy: Duodenal mucosa within normal limits; preserved villous architecture and no increase in intraepithelial lymphocytes seen. B. Stomach, biopsy: Gastric antral mucosa within normal limits; negative for Helicobacter pylori, intestinal metaplasia and dysplasia. C. Esophagus, distal, biopsy: Squamous mucosa within normal limits; negative for inflammation (including intraepithelial eosinophils), fungal organisms, intestinal metaplasia and dysplasia. D. Colon, transverse, polypectomy: Tubular adenoma, multiple fragments; negative for high-grade dysplasia. E. Colon, descending, polypectomy: Tubular adenoma; negative for high-grade dysplasia. [facility] VISIT [facility] Medical History H/O Catalan's palsy Acute renal failure Paroxysmal ventricular tachycardia Aortic valvar stenosis TIA (transient ischemic attack) BPH (benign prostatic hyperplasia) Lumbar degenerative disc disease Idiopathic osteoporosis Anemia Anemia TAI (obstructive sleep apnea) RLS (restless legs syndrome) HTN (hypertension) Chronic renal insufficiency Anxiety GERD (gastroesophageal reflux disease) Elevated cholesterol CAD (coronary artery disease) Surgical History History of prostate surgery S/P CABG (coronary artery bypass graft) Status post medial meniscus repair Hx of colonoscopy History of esophagogastroduodenoscopy (EGD) Family History Mother Colon cancer Social History Alcohol intake: current Alcohol intake frequency: holidays/special occasions only Patient Tobacco Use Status: Never used Tobacco Review of Systems Const Denies fatigue, Denies fever(s), Denies night sweats, Denies poor appetite and Denies weight loss Eyes Details: glasses Reports requires corrective lenses ENT Reports Normal hearing present, Denies dental pain, Denies dysphagia, Denies hearing loss, Denies mouth pain, Denies odynophagia, Denies throat swelling, Denies tongue swelling and Reports other (Dentition adequate) Card Reports no additional complaints Resp Reports no additional complaints GI Details: Denies abdominal pain, Denies melena, Denies bloating, Denies hematochezia, Denies constipation, Denies GI cramping, Denies dysphagia, Denies excessive flatus, Denies early satiety, Denies heartburn, Denies diarrhea, Denies nausea, Denies odynophagia, Denies vomiting and Denies hematemesis Skin/Breast Denies pruritus, Denies lesions, Denies rash and Denies jaundice Neuro Reports Normal hearing present and Denies Abnormal speech present Endo Denies fatigue Aller/Immun Denies throat swelling and Denies tongue swelling Physical Exam Vital Signs: BMI result Body Mass Index 33.6 Const General: cooperative, no acute distress, well developed and well groomed Nutritional Appearance: well nourished and obese Orientation/consciousness: oriented to person, oriented to place and oriented to time Limitations: No language barrier HEENT Head: Yes normocephalic and Yes atraumatic Eyes General: appearance normal, both eyes and all related structures Pupils: Equal, round and reactive pupils present Neck Neck: Yes normal visual inspection and Yes no lymphadenopathy Thyroid: Thyroid normal Resp Effort & Inspection: normal respiratory effort and able to speak in complete sentences Auscultation: clear to auscultation bilaterally Cardio Rate: regular rate Rhythm: regular rhythm Heart sounds: Normal, physiologic split S2 sound present Peripheral pulses: radial pulses present and posterior tibial pulses present GI Inspection: No distended, No Abdominal panniculus present and Yes obesity Palpation (GI): Soft to palpation, nontender, no guarding, not rigid and No hepatosplenomegaly present Percussion: Yes normal to percussion Auscultation: normal bowel sounds Rectal Exam - Male: Yes deferred Skin General skin exam: no rashes or lesions noted, turgor normal, skin not dry, no jaundice, No spider nevi and no striae Rashes: no rashes Nails: normal Neuro General: oriented to person, oriented to place and oriented to time Cranial nerves: Yes Equal, round and reactive pupils present and Yes Normal hearing present Speech: No Abnormal speech present Extrem General: Yes normal to inspection, No clubbing, No cyanosis and No edema Psych Appearance: grossly normal and well kempt Mental Status: mental status grossly normal Speech and movement: Normal speech and movement present Affect: normal affect Attitude: cooperative Thought process: Normal thought process present and not confabulating Thought content: Normal thought content present Insight: Fair insight present (Psych) Judgement: Fair judgement present (Psych) Results Reviewed Results Reviewed: Laboratory Tests 06/27/25 14:51 Ferritin 10 L EGD/COLONOSCOPY 08/15/25 Findings: Larynx:normal Esophagus: GE junction at 40 cm, diaphragm hiatus at 42 cm, normal mucosa, bx taken from distal esophagus, schatzki ring noted with 2 cm hiatal hernia Stomach: patchy erythema. Biopsies were obtained. Grade 2 flap valve on retroflexed examination of the cardia. Duodenum: Normal bulb and descending duodenum, bx taken Findings: Terminal Ileum-normal Cecum: diverticula noted Ascending Colon: normal Transverse Colon - 10 mm sessile polyp lifted with eleview and removed with cold snare Descending Colon: 8-9 mm sessile polyp removed with cold snare Sigmoid Colon: moderate severe diverticulosis Rectum: Retroflexion with medium sized internal hemorrhoids, grade I Anorectum - normal Impression and Post Procedure Diagnosis: Endoscopy Findings: hiatal hernia schatzki ring gastritis Colonoscopy Findings: diverticulosis colon polyps x 2 internal hemorrhoids Plan: Await Pathology results Repeat Colonoscopy in 5 years if health allows or earlier if clinically indicated High fiber diet leaflet avoid straining at stool, epsom salts and sitz bath, anusol supps or cream consider small bowel capsule study BIOPSY Received: 08/15/25 Diagnosis A. Duodenum, biopsy: Duodenal mucosa within normal limits; preserved villous architecture and no increase in intraepithelial lymphocytes seen. B. Stomach, biopsy: Gastric antral mucosa within normal limits; negative for Helicobacter pylori, intestinal metaplasia and dysplasia. C. Esophagus, distal, biopsy: Squamous mucosa within normal limits; negative for inflammation (including intraepithelial eosinophils), fungal organisms, intestinal metaplasia and dysplasia. D. Colon, transverse, polypectomy: Tubular adenoma, multiple fragments; negative for high-grade dysplasia. E. Colon, descending, polypectomy: Tubular adenoma; negative for high-grade dysplasia. Assessment & Plan Assessment & Plan (1) Tubular adenoma of colon: Comment: 2024 scope= 2 TA is repeat in 5 years Code(s): D12.6 - Benign neoplasm of colon, unspecified Category: Medical Plan He is on esomeprazole 20 mg once a day, famotidine 20 mg twice a day, and dicyclomine 20 mg up to 4 times a day. - The patient is a 75-year-old male presenting with anemia. - Low ferritin indicates low iron storage; no gastrointestinal source identified for anemia. - Recent polypectomy performed during GI procedures, revealing no signs of bleeding. - Prior hematology consultations found no definitive cause with plans for a bone marrow study. - Prostate MRI showed lesions due to an elevated PSA, suggesting possible prostate cancer; biopsy pending. - Adjusted iron supplementation has mitigated gastro-intestinal symptoms previously experienced by the patient. He is no longer taking the esomeprazole famotidine or dicyclomine. He has found that the symptoms resolved once he decreased his amlodipine back to the 5 mg dosing. He believes that this medication was causing side effects that caused all of the aforementioned symptoms. He now feels quite well in general. We are not prescribing anything so he is always welcome to return to us as needed. I wish him the best of luck in terms of discovering his anemia and hope that his prostate lesion is of the more garden-variety type of prostate cancer that tends to be slow growing and easy to treat. Obviously, he is quite worried about this. Coding Level of Care Code Est Pt Level 3 (76117) Diagnoses Tubular adenoma of colon D12.6
[2025-09-18 09:41] VITALS: BMI 33.6
--- OUTSIDE RECORDS SUMMARY | 2025-09-18 10:12 | XMS_ITS | Encounter Summary ---
Author Organization [facility] Address [address] [place] [id number] Phone Care Team Providers Care Yard Worker Name Role Phone Ruslan Tarango MD Primary Care Provider + Encounter Details Date Type Department Care Team (Late st Contact Info) Description 12/02/2022 Procedure Pass OR Admitting Dept - Virtual Department [address] [place] [address] Social History Tobacco Use Types Packs/Day Years [...] 12/02/2022 Are you denied basic needs s [facility] as food, clothing, or medical care? 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 Wish to be (Past 1 Month) No 023 5:48 PM Shira Cruz, NGUYỄN 2. Non-Specific Active Suici yari Thoughts (Past 1 Month) No 12/02/2022 5:48 PM Shira Cruz RN 6. Suicidal Behavior (Lifetime) No 5:48 PM Shira Cruz, NGUYỄN documented as of this encounter Plan of Treatment Upcoming Encounters Date Type Department Care Team (Late st Contact Info) Description 09/21/2025 10:15 AM EDT Office Visit [address] [address] [address] [place] [facility] [address] [place] [address] Hardik Montanez, PT [address] [place] [address] 09/26/2025 10:15 AM EDT Office Visit [address] [address] [address] [place] [facility] [address] [place] [address] Cha Esquivel PTA [address] [place] [phone] 10/03/2025 10:15 AM EST Office Visit [address] [address] [address] [place] [facility] [address] [place] [phone] Cha Esquivel PTA [address] [place] [phone] [email or web address] 10/10/2025 11:30 AM EST Office Visit [address] [address] Foreign [facility] [address] [place] [phone] María Du, PT [address] [place] [address] [email or web address] 10/12/2025 8:00 AM EST Office Visit [address] [address] Foreign [facility] [address] [place] [phone] Cha Esquivel, KNIT GOODS WASHER [address] [place] [address] [email or web address] 10/23/2025 1:30 PM EST Office Visit [address] [address] Foreign [facility] [address] [place] [phone] María Du, PT [address] [place] [address] [email or web address] 10/29/2025 11:30 AM EST Office Visit [address] [address] Foreign Nelson [facility] [address] [place] [phone] María Du, PT [address] [place] [address] [email or web address] 11/05/2025 11:30 AM EST Office Visit [facility] [address] [place] [address] Foreign Nelson [facility] [address] [place] [phone] María Du, PT [address] [place] [address] [email or web address] documented as of this encounter Visit Diagnoses Not on filedocumented in this encounter Care Teams Yard Worker Relationship Specialty Start Date End Date Ruslan Tarango MD [address] [place] [address] [address] [place] [phone] PCP - General Internal Medicine 03/14/22 documented as of this encounter Additional Source Comments The information contained in this document represents components of the legal health record. It is not the complete legal health record.[facility]
--- OUTSIDE RECORDS SUMMARY | 2025-09-18 10:12 | XMS_ITS | Patient Health Record ---
Author Organization [facility] Address [address] [place] [address] Care Team Providers Care Tool Shaper Set Up Operator Name Role Phone Yg BARON, Vic Primary Care Provider Wen Filipe Lakhani [phone] Allergies Allergen (clinical drug ingredient) Drug/Non Drug [...] Active Lansoprazole 30 MG 1 capsule Orally QD; Duration: 90 day(s) 01/03/2013 Active Fish Oil Active Folic Acid Active Casandra 5/40mg Active Problems Problem Type SNOMED Code ICD Code Onset Dates Problem Status W/U Status Risk Notes Problem Esophageal reflux (222263456) Esophageal reflux (530.81) Active confirmed Problem Irritable bowel syndrome (63990180) Irritable bowel syndrome (564.1) Active confirmed Plan Of Treatment No Information Insurance Providers Payer Name Payer Address Payer Phone Subscriber Number Group Number Insured Name Patient Relationship to Insured Coverage Start Date Coverage End Date [facility] [address] [place] [address] [id number] SUSHANT FARAH Self - patient is the insured Medical (General) History Medical History History ICD Code negative cardiac catheteriza tion per history of present illness. Otherwise per old record
--- OUTSIDE RECORDS SUMMARY | 2025-09-18 10:12 | XMS_ITS | Clinical Summary ---
Author Organization [facility] Address [address] [place] [phone] Phone Care Team Providers Care Signing Teacher Name Role Phone Ruslan Tarango MD Primary [...] artery disease 07/20/2011 Overview (12/02/2022): Dr. Almodovar [facility] Cardiology Assessment & Plan (12/03/2022 7:41 AM EST): Continue aspirin, statin, fenofibrate, co-Q10, metoprolol, omega-3. Encounters Date Type Department Care Team Description 09/04/2025 3:00 PM EDT Office Visit [address] [address] Foreign Nelson PA Mitchell, Ian, PT Acute pain of right knee (Primary Dx) 08/30/2025 11:00 AM EDT Office Visit [address] [address] Perla Donovan PA Mitchell, Ian, PT Cervicalgia (Primary Dx) 08/30/2025 Transcribe Orders [facility] [address] [place] [address] María Lamas Encounter for rehabilitation (Primary Dx) 08/27/2025 11:45 AM EDT Office Visit [address] [address] Perla Donovan PA Truehart, Jane, [employer] WORKER Cervicalgia (Primary Dx) 08/23/2025 1:30 PM EDT Office Visit [address] [address] Perla Donovan PA Mitchell, Ian, PT Cervicalgia (Primary Dx) 08/21/2025 2:15 PM EDT Office Visit [address] [address] Perla Donovan PA Truehart, Jane, [employer] WORKER Cervicalgia (Primary Dx) 08/17/2025 11:45 AM EDT Office Visit [address] [address] Perla Donovan PA Truehart, Jane, [employer] WORKER Cervicalgia (Primary Dx) 08/13/2025 12:00 PM EDT Office Visit [address] [address] Perla Donovan PA Mitchell, Ian, PT Cervicalgia (Primary Dx) 08/07/2025 11:45 AM EDT Office Visit [address] [address] Perla Donovan PA Mitchell, Ian, PT Cervicalgia (Primary Dx) 07/31/2025 11:45 AM EDT Office Visit [address] [address] Perla Donovan PA Mitchell, Ian, PT Cervicalgia (Primary Dx) from Last 3 Months Immunizations [...] your housing situation today? 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 Not on file [...] Description 09/21/2025 10:15 AM EDT Office Visit [address] [address] Foreign Nelson PA [address] [place] [phone] Hardik Montanez, PT [address] [place] [address] 09/26/2025 10:15 AM EDT Office Visit [address] [address] Foreign Nelson PA [address] [place] [phone] Cha Esquivel, [employer] WORKER [address] [place] [address] [email or web address] 10/03/2025 10:15 AM EST Office Visit [address] [address] Foreign Nelson PA [address] [place] [phone] Cha Esquivel, [employer] WORKER [address] [place] [phone] 10/10/2025 11:30 AM EST Office Visit [address] [address] Foreign Nelson PA [address] [place] [phone] María Du, PT [address] [place] [address] [email or web address] 10/12/2025 8:00 AM EST Office Visit [address] [address] Foreign Nelson PA [address] [place] [phone] Cha Esquivel, [employer] WORKER [address] [place] [address] [email or web address] 10/23/2025 1:30 PM EST Office Visit [address] [address] Foreign Nelson PA [address] [place] [phone] María Du, PT [address] [place] [address] [email or web address] 10/29/2025 11:30 AM EST Office Visit [address] [address] Foreign Nelson PA [address] [place] [phone] María Du, PT [address] [place] [address] [email or web address] 11/05/2025 11:30 AM EST Office Visit [address] [address] Foreign Nelson PA [address] [place] [address] María Du, PT [address] [place] [address] [email or web address] Health Maintenance Due Date Last Done Comments Adult Td,Tdap Booster 1951 DEPRESSION SCREENING 1963 HEPATITIS C SCREENING 1969 COLOGUARD 1996 COLONOSCOPY 1996 COLORECTAL CANCER SCREENING 1996 FIT TEST 1996 FOBT 1996 SIGMOIDOSCOPY 1996 VIRTUAL COLONOSCOPY 1996 CREATININE LEVEL 12/03/2023 12/03/2022, 02/2023, 09/26/2020 POTASSIUM LEVEL 12/03/2023 12/03/2022, 02/2023, 09/26/2020 INFLUENZA VACCINE (#1) 2025 , 09/24/2023, 09/25/2022, Additional history exists COVID-19 VACCINE (2024- season) 2025 03/10/2021, 02/17/2021 BLOOD PRESSURE 12/09/2025 [...] this topic Medical Devices Implanted Type Area Medicine Man Device Identifier Shelf Expiration Date Model / Serial / Lot Wire Wire Procedures Procedure Name Priority Date/Time Associated Diagnosis Comments BASIC METABOLIC PANEL Routine 12/03/2022 5:19 AM EST from Last 3 Months or Most Recently Relevant to Health Maintenance Results * (ABNORMAL) Basic metabolic panel (12/03/2022 5:19 AM EST) SODIUM 142 133 - 146 mmol/L [facility] CHLORIDE 108 96 - 108 mmol/L [facility] POTASSIUM 3.6 3.3 - 5.1 mmol/L [facility] Comment:Specimen slightly he molyzed, result may be falsely elevated. CO2 26 21 - 35 mmol/L [facility] BUN 18 6 - 19 mg/dL [facility] CREATININE 1.10 0.5 - 1.5 mg/dL [facility] GLUCOSE 146(H) 70 - 99 mg/dL [facility] CALCIUM 8.7 8.4 - 10.3 mg/dL [facility] EGFR 72 >59 mL/min/1.7 3m2 [facility] Comment:Estimated glomerular filtration rate calculated using the CKD-EPI refit equation. ANION GAP 12 10 - 20 mmol/L [facility] Blood 12/03/2022 5:19 AM EST 12/03/2022 5:50 AM EST Fiona Hearn PA-C LAB BLOOD ORDERABLES Final Result Performing Organization Address City/State/[facility] Co de Phone Number [address] [address] from Last 3 Months or Most Recently Relevant to Health Maintenance Insurance [facility] [address] [place] [address] [place] [address] [place] [address] [place] [address] Advance Directives For more information, please contact: [phone] (9AM - 5PM [facility], Wednesday-Wednesday) * Full Code (Latest Code Status on File) Date Activated Date Inactivated Comments 12/02/2022 3:46 PM Question Answer Comments Code Status Confirmed With: Patient * Full Code Date Activated Date Inactivated Comments 12/02/2022 3:46 PM 12/02/2022 3:46 PM Question Answer Comments Code Status Confirmed With: Patient Care Teams Signing Teacher Relationship Specialty Start Date End Date Ruslan Tarango MD [address] [phone] PCP - General Internal Medicine 03/14/22 Additional Source Comments The information contained in this document represents components of the legal health record. It is not the complete legal health record.[facility]
== END 2025-09-18 10:37 | disposition home or self-care (01) ==
LOC: HO.HGI 09:16
PROVIDERS: PCP Internal Medicine; Visit Provider Nurse Practitioner
DX: D12.6 Benign neoplasm of colon, unspecified (principal)
CPT/HCPCS: 99213